=== PATIENT | male | born 1985 | race Two or more races ===

== ENCOUNTER 2018-03-09 12:47 | Emergency (ER) | payer BC ==
[2018-03-09] MEDS ORDERED: METOCLOPRAMIDE HCL INJ/PF 10 MG/2 ML SDV IV ONE (13:01)
[2018-03-09] MEDS ORDERED: DIPHENHYDRAMINE HCL 50 MG/ML VIAL IV ONE (13:01)
[2018-03-09] MEDS ORDERED: NORMAL SALINE 1000 ML 500 ML IV ONE (13:02)
--- NOTE | 2018-03-09 13:06 | ER Document Report ---
ED General - General Chief Complaint: Vomiting Stated Complaint: VOMITING/SLEEP ISSUES Time Seen by Provider: 03/09/18 12:56 Notes: 32-year-old male here with complaints of nausea vomiting diarrhea over the past 2 days. He has had some intermittent abdominal cramping but not at this time. The diarrhea has resolved. He has not had a bowel movement in 2 days but he has also not been eating anything due to the nausea. He saw his doctor and was prescribed Zofran which is helping and the vomiting has resolved but nausea persists. He also has some body aches for which he has taken Tylenol. He is also had some trouble sleeping due to the symptoms but has not taken anything for this. He denies any known sick contacts. TRAVEL OUTSIDE OF THE [place] IN LAST 30 DAYS: No - Related Data Allergies/Adverse Reactions: No Known Allergies Allergy (Verified 03/09/18 12:50) Past Medical History - Social History Smoking Status: Never Smoker Chew tobacco use (# tins/day): No Frequency of alcohol use: None Drug Abuse: None Family History: Reviewed & Not Pertinent Patient has suicidal ideation: No Patient has homicidal ideation: No Endocrine Medical History: Reports: Hx Diabetes Mellitus Type 2 - Diet controlled Renal/ Medical History: Denies: Hx Peritoneal Dialysis Review of Systems - Review of Systems Notes: See history of present illness for pertinent positive review of systems; otherwise all review of systems have been reviewed and are negative Physical Exam - Vital signs Vitals: Temp Pulse Resp BP Pulse Ox 98.2 F 99 20 138/96 H 98 03/09/18 12:52 03/09/18 12:52 03/09/18 12:52 03/09/18 12:52 03/09/18 12:52 - Notes Notes: PHYSICAL EXAMINATION: GENERAL: Well-appearing and in no acute distress. HEAD: Atraumatic, normocephalic. EYES: Pupils equal round and reactive to light, extraocular movements intact, sclera anicteric, conjunctiva are normal. ENT: nares patent, oropharynx clear without exudates. Moist mucous membranes. NECK: Normal range of motion, supple without lymphadenopathy LUNGS: CTAB and equal. No wheezes rales or rhonchi. HEART: Regular rate and rhythm without murmurs ABDOMEN: Soft, no tenderness. No facial grimacing/wincing upon palpation. No guarding, no rebound. EXTREMITIES: Normal range of motion, no pitting edema. No cyanosis. NEUROLOGICAL: Cranial nerves grossly intact. Normal sensory/motor exams. PSYCH: Normal mood, normal affect. SKIN: Warm, Dry, normal turgor, no rashes or lesions noted Course - Re-evaluation Re-evalutation: 03/09/18 13:04 MEDICAL DECISION MAKING: Concern for gastrointestinal infection, most likely viral Value fluids here and Reglan and Benadryl with prescription oral Reglan and Phenergan suppositories Instructed patient on fever control with Tylenol and/or (if applicable) Motrin Also discussed keeping hydrated with water or Gatorade/Pedialyte Instructed follow-up PCP next day or few Patient understands and agrees to the plan of care - Vital Signs Vital signs: Temp Pulse Resp BP Pulse Ox 98.2 F 99 20 138/96 H 98 03/09/18 12:52 03/09/18 12:52 03/09/18 12:52 03/09/18 12:52 03/09/18 12:52 Discharge - Discharge Clinical Impression: Nausea vomiting and diarrhea Condition: Good Disposition: HOME, SELF-CARE Instructions: Antinausea Medication ([facility]) Additional Instructions: You were seen in the emergency department at [facility]. Use the Reglan pills for vomiting. If he cannot tolerate pills, use the Phenergan suppositories. They will also help with sleep. If you were given any sedating medications, such as Reglan and Phenergan, be sure not to operate heavy machinery (example - driving) and be sure you are not too sedated to walk appropriately. Please followup with your primary physician in the next few days for further management/evaluation. Please return to the emergency department for worsening of symptoms or any symptom that you deem to be concerning or life-threatening. Thank you for allowing us to be part of your care. This documentation serves as your work/school note for your ED visit today. Prescriptions: Metoclopramide HCl [Reglan 10 mg Tablet] 1 tab PO BIDP PRN #10 tablet PRN Reason: Promethazine HCl [Phenergan 25 mg Supp.rect] 1 supp CO Q6H #12 supp.rect
[2018-03-09 14:41] VITALS: BP 122/88
== END 2018-03-09 14:38 | disposition home or self-care (01) ==
LOC: ER 12:47
DX: R11.2 Nausea with vomiting, unspecified (principal); R19.7 Diarrhea, unspecified; R10.9 Unspecified abdominal pain; E11.9 Type 2 diabetes mellitus without complications
CPT/HCPCS: 99283; 96361; 96374; 96375; J1200; J2765; J7030

== ENCOUNTER 2018-03-10 16:40 | Emergency (ER) | payer BC ==
[2018-03-10 17:12] LABS: ABSOLUTE BASOPHILS # (AUTO) 0.1 10^3/uL (0.0-0.2); ABSOLUTE LYMPHOCYTES (AUTO) 3.8 10^3/uL (0.5-4.7); ABSOLUTE MONOCYTES (AUTO) 1.5 10^3/uL (0.1-1.4); ABSOLUTE NEUT (AUTO) 12.9 10^3/uL (1.7-8.2); BASOPHILS % (AUTO) 0.4 % (0-2); EOSINOPHILS % (AUTO) 0.2 % (0-6); HEMATOCRIT 49.4 % (37.9-51.0); HEMOGLOBIN 16.8 g/dL (13.5-17.0); LYMPHOCYTES % (AUTO) 20.8 % (13-45); MEAN CORPUSCULAR HEMOGLOBIN 28.4 pg (27.0-33.4); MEAN CORPUSCULAR HGB CONC 34.1 g/dL (32.0-36.0); MEAN CORPUSCULAR VOLUME 83 fl (80-97); MONOCYTES % (AUTO) 8.1 % (3-13); PLATELET COUNT 321 10^3/uL (150-450); RED BLOOD COUNT 5.94 10^6/uL (4.35-5.55); RED CELL DISTRIBUTION WIDTH 12.8 % (11.5-14.0); SEGMENTED NEUTROPHILS % (AUTO) 70.5 % (42-78); TOTAL CELLS COUNTED % (AUTO) 100 %; WHITE BLOOD COUNT 18.3 10^3/uL (4.0-10.5)
[2018-03-10 17:53] LABS: ALANINE AMINOTRANSFERASE 25 U/L (21-72); ALBUMIN 5.2 g/dL (3.5-5.0); ALKALINE PHOSPHATASE 87 U/L (38-126); ASPARTATE AMINO TRANSFERASE 18 U/L (17-59); BILIRUBIN,DIRECT 0.5 mg/dL (0.0-0.4); BILIRUBIN,TOTAL 1.2 mg/dL (0.2-1.3); BLOOD UREA NITROGEN 15 mg/dL (7-20); GLUCOSE 284 mg/dL (75-110); POTASSIUM 4.5 mmol/L (3.6-5.0); TOTAL PROTEIN 8.6 g/dL (6.3-8.2)
[2018-03-10 17:58] LABS: CARBON DIOXIDE 18 mmol/L (22-30); CHLORIDE 99 mmol/L (98-107); SODIUM 138.6 mmol/L (137-145)
[2018-03-10 18:01] LABS: ANION GAP 22 (5-19)
[2018-03-10 18:09] LABS: APPEARANCE,URINE CLEAR; BILIRUBIN,URINE NEGATIVE (NEGATIVE); COLOR,URINE YELLOW; GLUCOSE, URINE >=500 mg/dL (NEGATIVE); KETONES,URINE 80 mg/dL (NEGATIVE); LEUKOCYTE ESTERASE,URINE NEGATIVE (NEGATIVE); NITRITE,URINE NEGATIVE (NEGATIVE); PROTEIN,URINE 100 mg/dL (NEGATIVE); URINE SPECIFIC GRAVITY 1.038; UROBILINOGEN,URINE NEGATIVE mg/dL (<2.0)
[2018-03-10] MEDS ORDERED: NORMAL SALINE 1000 ML 1,000 ML IV ONE (18:25)
[2018-03-10] MEDS ORDERED: RINGERS SOLUTION,LACTATED 1,000 ML IV ONE (19:13)
[2018-03-10] MEDS ORDERED: METOCLOPRAMIDE HCL ORAL SOLN 10 MG/10 ML UDCUP PO ONE (19:13)
[2018-03-10] MEDS ORDERED: LIDOCAINE 2% VISCOUS SOLN 20 ML UDCUP PO ONE (19:13)
[2018-03-10] MEDS ORDERED: FAMOTIDINE 20 MG TABLET PO ONE (19:13)
[2018-03-10] MEDS ORDERED: MAG HYDROX/AL HYDROX/SIMETH SUSP 30 ML UDCUP PO ONE (19:13)
--- NOTE | 2018-03-10 19:18 | ER Document Report ---
ED General - General Chief Complaint: General Weakness Stated Complaint: WEAKNESS Time Seen by Provider: 03/10/18 18:24 Notes: Patient is a 32-year-old male with a past medical history of diabetes controlled with diet who presents with body aches, fatigue, nausea, and feeling generally unwell. Patient reports that he had a vomiting and diarrheal illness 2 days ago which has now resolved but notes that his symptoms of generally feeling unwell have not improved. He describes the pain in his body as being an aching, throbbing, constant pain. He states that he was seen in the emergency department yesterday, but that the medications provided are not necessary as he no longer has any nausea or vomiting. His main complaint is that he is unable to sleep. There is no specific reason cannot do so he states only that he lies in his bed and is unable to rest. He denies anything in particular is keeping him awake. He denies a history of insomnia at baseline. He denies any focal abdominal pain, fever, or inability to tolerate oral intake at this time stating that he has been trying to push fluids aggressively but does not feel that this is resolving his symptoms. He notes that he has a recurrent history of similar symptoms in the past but that they do not typically last this long. He has not seen his general doctor regarding today's concerns. TRAVEL OUTSIDE OF THE [place] IN LAST 30 DAYS: No - Related Data Allergies/Adverse Reactions: No Known Allergies Allergy (Verified 03/10/18 16:41) Past Medical History - General Information source: Patient - Social History Smoking Status: Never Smoker Frequency of alcohol use: None Drug Abuse: None Lives with: Spouse/Significant other Family History: Reviewed & Not Pertinent Patient has suicidal ideation: No Patient has homicidal ideation: No Endocrine Medical History: Reports: Hx Diabetes Mellitus Type 2 - Diet controlled Renal/ Medical History: Denies: Hx Peritoneal Dialysis Past Surgical History: Reports: Hx Tonsillectomy Review of Systems - Review of Systems Notes: Constitutional: Negative for fever. HENT: Negative for sore throat. Eyes: Negative for visual changes. Cardiovascular: Negative for chest pain. Respiratory: Negative for shortness of breath. Gastrointestinal: Negative for abdominal pain, positive for nausea Genitourinary: Negative for dysuria. Musculoskeletal: Positive for body aches Skin: Negative for rash. Neurological: Negative for headaches, weakness or numbness. 10 point ROS negative except as marked above and in HPI. Physical Exam - Vital signs Vitals: Temp Pulse Resp BP Pulse Ox 99.2 F 113 H 18 131/93 H 97 03/10/18 16:44 03/10/18 16:44 03/10/18 16:44 03/10/18 16:44 03/10/18 16:44 Interpretation: Tachycardic Notes: PHYSICAL EXAMINATION: GENERAL: Appears mildly uncomfortable but in no acute distress HEAD: Atraumatic, normocephalic. EYES: Pupils equal round and reactive to light, extraocular movements intact, sclera anicteric, conjunctiva are normal. ENT: nares patent, oropharynx clear without exudates. Mildly dry mucous membranes. NECK: Normal range of motion, supple without lymphadenopathy LUNGS: Breath sounds clear to auscultation bilaterally and equal. No wheezes rales or rhonchi. HEART: Regular rate and rhythm without murmurs ABDOMEN: Soft, nontender, normoactive bowel sounds. No guarding, no rebound. No masses appreciated. EXTREMITIES: Normal range of motion, no pitting or edema. No cyanosis. NEUROLOGICAL: No focal neurological deficits. Moves all extremities spontaneously and on command. PSYCH: Normal mood, normal affect. SKIN: Warm, Dry, normal turgor, no rashes or lesions noted. Course - Re-evaluation Re-evalutation: 03/10/18 19:15 Presentation of an overall well-appearing patient in no acute distress with complaints of nausea, vomiting, diarrhea all of which has since resolved with the patient reports that he continues to feel dehydrated with associated body aches. This is consistent with likely viral gastroenteritis. Patient has no abdominal tenderness on exam and specifically no tenderness in the RLQ, LLQ, RUQ. Overall well hydrated on exam although labs are notable for a mildly decreased bicarb. Able to tolerate oral intake here in the emergency department. Low clinical suspicion for any acute life-threatening etiology based on exam and history including acute cholecystitis, SBO, appendicitis, nephrolithiasis, or pylonephritis. CMP without evidence of acute hepatitis. CBC does show nonspecific leukocytosis. CK without evidence of rhabdomyolysis. Venous blood gas evidence of acute acidosis or significant alkalosis. Patient is likely having persistence of symptoms as he has only slept 3-4 hours in the past 2 days per his report. I will prescribe a short course of trazodone that he can use to allow him to sleep so he can recover. At this time will discharge with return precautions and follow-up recommendations. Verbal discharge instructions given a the bedside and opportunity for questions given. Medication warnings reviewed. Patient is in agreement with this plan and has verbalized understanding of return precautions and the need for primary care follow-up in the next 24-72 hours. - Vital Signs Vital signs: Temp Pulse Resp BP Pulse Ox 99.6 F 113 H 16 134/80 H 96 03/10/18 21:25 03/10/18 16:44 03/10/18 21:00 03/10/18 21:01 03/10/18 21:01 - Laboratory Result Diagrams: 03/10/18 17:00 03/10/18 17:00 Laboratory results interpreted by me: 03/10/18 03/10/18 03/10/18 17:00 17:00 17:40 WBC 18.3 H RBC 5.94 H Absolute Neutrophils 12.9 H Absolute Monocytes 1.5 H Carbon Dioxide 18 L Anion Gap 22 H Glucose 284 H Direct Bilirubin 0.5 H Total Protein 8.6 H Albumin 5.2 H Urine Protein 100 H Urine Glucose (UA) >=500 H Urine Ketones 80 H Urine Blood SMALL H Discharge - Discharge Clinical Impression: Nausea vomiting and diarrhea, Dehydration, Body aches Insomnia Qualifiers: Insomnia type: unspecified Qualified Code(s): G47.00 - Insomnia, unspecified Leukocytosis Qualifiers: Leukocytosis type: unspecified Qualified Code(s): D72.829 - Elevated white blood cell count, unspecified Condition: Good Disposition: HOME, SELF-CARE Additional Instructions: Your symptoms are likely due to a viral illness and should resolve in the next several days. Continue to stay hydrated with plenty of solution such as Gatorade or Pedialyte. Please return if you develop severe abdominal pain, pass out, become unable to tolerate any oral fluids for 12 more hours, or any other symptoms that are concerning to you. Take the trazodone at night as needed for insomnia. Prescriptions: Trazodone HCl 100 mg PO QHS #10 tablet
[2018-03-10 19:30] LABS: VENOUS BLOOD BASE EXCESS -5.7 mmol/L; VENOUS BLOOD HCO3 20.1 mmol/L (20-32); VENOUS BLOOD PCO2 40.6 mmHg (35-63); VENOUS BLOOD PH 7.31 (7.30-7.42)
[2018-03-10 20:34] LABS: CREATINE KINASE 121 U/L (55-170)
[2018-03-10 21:33] VITALS: BP 134/80
== END 2018-03-10 21:30 | disposition home or self-care (01) ==
LOC: ER 16:40
DX: R11.2 Nausea with vomiting, unspecified (principal); R19.7 Diarrhea, unspecified; E86.0 Dehydration; M79.1 Myalgia; G47.00 Insomnia, unspecified; D72.829 Elevated white blood cell count, unspecified; R53.1 Weakness; E11.9 Type 2 diabetes mellitus without complications
CPT/HCPCS: 99285; 96360; 96361; 36415; 82962; 82550; 83605; 83690; 85025; 80053; 81001; 82803; J3490; J7030; J7120

== ENCOUNTER 2018-10-17 16:29 | Emergency (ER) | payer SELFPAY ==
[2018-10-17 16:42] VITALS: BP 146/94
[2018-10-17] MEDS ORDERED: NORMAL SALINE 1000 ML 1,000 ML IV ONE (17:47)
[2018-10-17] MEDS ORDERED: PROCHLORPERAZINE EDISYLATE INJ 10 MG/2 ML VIAL IV ONE (17:47)
[2018-10-17] MEDS ORDERED: FAMOTIDINE INJ/PF 20 MG/2 ML SDV IV ONE (17:47)
[2018-10-17] MEDS ORDERED: ONDANSETRON 4 MG TAB.RAPDIS PO ONE (17:48)
--- NOTE | 2018-10-17 17:52 | ER Document Report ---
ED Medical Screen (RME) - General Chief Complaint: Nausea/Vomiting Stated Complaint: VOMITING Time Seen by Provider: 10/17/18 17:45 Notes: 32-year-old male to the emergency department chief complaint of "cyclic vomiting". 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 Cannot stop vomiting. Was prescribed some medications but has not been able to take them yet. Denies any abdominal pain I have greeted and performed a rapid initial assessment of this patient. A comprehensive ED assessment and evaluation of the patient, analysis of test results and completion of the medical decision making process will be conducted by additional ED providers. TRAVEL OUTSIDE OF THE [place] IN LAST 30 DAYS: No - Related Data Allergies/Adverse Reactions: No Known Allergies Allergy (Verified 05/22/18 09:36) Past Medical History Endocrine Medical History: Reports: Hx Diabetes Mellitus Type 2 - Diet controlle d Renal/ Medical History: Denies: Hx Peritoneal Dialysis Past Surgical History: Reports: Hx Tonsillectomy Physical Exam - Vital signs Vitals: Temp Pulse Resp BP Pulse Ox 97.6 F 70 18 146/94 H 100 10/17/18 16:39 10/17/18 16:39 10/17/18 16:39 10/17/18 16:39 10/17/18 16:39 - Notes Notes: Uncontrollable vomiting in triage. Course - Vital Signs Vital signs: Temp Pulse Resp BP Pulse Ox 97.6 F 70 18 146/94 H 100 10/17/18 16:39 10/17/18 16:39 10/17/18 16:39 10/17/18 16:39 10/17/18 16:39
[2018-10-17 18:29] LABS: VENOUS BLOOD BASE EXCESS -5.6 mmol/L; VENOUS BLOOD HCO3 20.6 mmol/L (20-32); VENOUS BLOOD PCO2 42.4 mmHg (35-63); VENOUS BLOOD PH 7.3 (7.30-7.42)
[2018-10-17 18:34] LABS: HEMATOCRIT 49.4 % (37.9-51.0); HEMOGLOBIN 16.7 g/dL (13.5-17.0); MEAN CORPUSCULAR HEMOGLOBIN 28.3 pg (27.0-33.4); MEAN CORPUSCULAR HGB CONC 33.8 g/dL (32.0-36.0); MEAN CORPUSCULAR VOLUME 84 fl (80-97); RED BLOOD COUNT 5.89 10^6/uL (4.35-5.55); RED CELL DISTRIBUTION WIDTH 13.2 % (11.5-14.0); WHITE BLOOD COUNT 24.3 10^3/uL (4.0-10.5)
[2018-10-17 18:50] LABS: ABSOLUTE LYMPHOCYTES# (MANUAL) 1.9 10^3/uL (0.5-4.7); ABSOLUTE NEUTROPHILS# (MANUAL) 21.4 10^3/uL (1.7-8.2); BASOPHILS % (MANUAL) 0 % (0-2); EOSINOPHILS % (MANUAL) 0 % (0-6); LYMPHOCYTES % (MANUAL) 8 % (13-45); MONOCYTES % (MANUAL) 4 % (3-13); SEGMENTED NEUTROPHILS % (MAN) 88 % (42-78); TOTAL CELLS COUNTED 100
[2018-10-17 18:52] LABS: PLATELET CLUMPS PRESENT; PLATELET COMMENT ADEQUATE; PLATELET COUNT 309 10^3/uL (150-450); POLYCHROMASIA SLIGHT
[2018-10-17 18:58] LABS: ALANINE AMINOTRANSFERASE 19 U/L (21-72); ALBUMIN 5.6 g/dL (3.5-5.0); ALKALINE PHOSPHATASE 91 U/L (38-126); ASPARTATE AMINO TRANSFERASE 18 U/L (17-59); BILIRUBIN,DIRECT 0.3 mg/dL (0.0-0.4); BILIRUBIN,TOTAL 0.6 mg/dL (0.2-1.3); BLOOD UREA NITROGEN 17 mg/dL (7-20); CALCIUM 10.4 mg/dL (8.4-10.2); LIPASE 41.1 U/L (23-300); POTASSIUM 4.3 mmol/L (3.6-5.0); TOTAL PROTEIN 8.8 g/dL (6.3-8.2)
[2018-10-17 19:04] LABS: GLUCOSE 398 mg/dL (75-110)
[2018-10-17 19:06] LABS: CHLORIDE 99 mmol/L (98-107)
[2018-10-17 19:07] LABS: CARBON DIOXIDE 20 mmol/L (22-30); SODIUM 142.5 mmol/L (137-145)
[2018-10-17 19:08] LABS: ANION GAP 24 (5-19)
[2018-10-17 19:47] LABS: APPEARANCE,URINE CLEAR; BILIRUBIN,URINE NEGATIVE (NEGATIVE); COLOR,URINE YELLOW; GLUCOSE, URINE >=500 mg/dL (NEGATIVE); KETONES,URINE 80 mg/dL (NEGATIVE); LEUKOCYTE ESTERASE,URINE NEGATIVE (NEGATIVE); NITRITE,URINE NEGATIVE (NEGATIVE); PROTEIN,URINE 100 mg/dL (NEGATIVE); URINE SPECIFIC GRAVITY 1.036; UROBILINOGEN,URINE NEGATIVE mg/dL (<2.0)
[2018-10-17 20:00] LABS: URINE AMPHETAMINES SCREEN NEGATIVE; URINE BARBITURATES SCREEN NEGATIVE; URINE BENZODIAZEPINES SCREEN NEGATIVE; URINE COCAINE SCREEN NEGATIVE; URINE MARIJUANA (THC) SCREEN UNCONFIRMED POSITIVE; URINE METHADONE SCREEN NEGATIVE; URINE PHENCYCLIDINE SCREEN NEGATIVE
--- NOTE | 2018-10-17 21:22 | EKG REPORT ---
SEVERITY:- BORDERLINE ECG - SINUS ARRHYTHMIA, RATE 53-71 BORDERLINE T ABNORMALITIES, INFERIOR LEADS : Confirmed by: Chris Estrada 17-Oct-2018 21:21:56
== END 2018-10-17 19:59 | disposition left against medical advice (07) ==
LOC: ER 16:29
DX: G43.A0 Cyclical vomiting, in migraine, not intractable (principal); E11.9 Type 2 diabetes mellitus without complications; Z53.20 Procedure and treatment not carried out because of patient's decision for unspecified reasons
CPT/HCPCS: 93005; 99281; 36415; 83690; 85025; 80053; 81001; 84484; 80307; 82803; 93010; S0119; J0780; J7030; S0028

== ENCOUNTER 2019-02-08 21:48 | Inpatient (IN) | payer BC ==
[2019-02-08] MEDS ORDERED: RINGERS SOLUTION,LACTATED 1,000 ML IV ONE ×2 (23:39→23:43)
[2019-02-08] MEDS ORDERED: ONDANSETRON HCL INJ/PF 4 MG/2 ML SDV IV ONE (23:39)
--- NOTE | 2019-02-08 23:41 | ER Document Report ---
ED Medical Screen (RME) - General Chief Complaint: vomitng Stated Complaint: VOMITING Time Seen by Provider: 02/08/19 23:39 Notes: Patient is a 33-year-old male history of cyclic vomiting syndrome presents to the emergency department for vomiting that started on Tuesday. States he is vomited upwards of 50 times. Patient states the last 48 hours he has not noticed any vomiting but has noticed that he has become increasingly weak. States his breathing has become elevated and he feels as though he is dehydrated. Patient states he does have a history of diabetes but has had no medications for same. Physical exam: Patient hyperventilating upon my examination. Abdomen soft nontender all 4 quadrants. No active vomiting noted. Due to patient's history of diabetes, potential hyperventilation versus Kussmaul breathing Accu-Chek ordered. I have greeted and performed a rapid initial assessment of this patient. A comprehensive ED assessment and evaluation of the patient, analysis of test results and completion of the medical decision making process will be conducted by additional ED providers. TRAVEL OUTSIDE OF THE [place] IN LAST 30 DAYS: No - Related Data Allergies/Adverse Reactions: No Known Allergies Allergy (Verified 05/22/18 09:36) Past Medical History Endocrine Medical History: Reports: Hx Diabetes Mellitus Type 2 - Diet controlled Renal/ Medical History: Denies: Hx Peritoneal Dialysis Past Surgical History: Reports: Hx Tonsillectomy Physical Exam - Vital signs Vitals: Temp Pulse Resp BP Pulse Ox 97.3 F 129 H 26 H 128/76 H 100 02/08/19 22:55 02/08/19 22:55 02/08/19 22:55 02/08/19 22:55 02/08/19 22:55 Course - Vital Signs Vital signs: Temp Pulse Resp BP Pulse Ox 97.3 F 129 H 26 H 128/76 H 100 02/08/19 22:55 02/08/19 22:55 02/08/19 22:55 02/08/19 22:55 02/08/19 22:55
--- NOTE | 2019-02-09 00:36 | ER Document Report ---
ED GI/ - General Chief Complaint: Vomiting Stated Complaint: VOMITING Time Seen by Provider: 02/08/19 23:39 Notes: 33-year-old male the emergency department with uncontrolled vomiting. Patient has a history of cyclical vomiting. History of diabetes but does not take anything for it. States that he has not been able to eat for several days. Denies any chest pain. Does have pain all over though. TRAVEL OUTSIDE OF THE [place] IN LAST 30 DAYS: No - HPI Patient complains to provider of: Abdominal pain Timing/Duration: Gradual, Constant, Worse Quality of pain: Achy Severity at maximum: Severe Severity in ED: Moderate Pain Level: 2 Location: Epigastric - Related Data Allergies/Adverse Reactions: No Known Allergies Allergy (Verified 05/22/18 09:36) Past Medical History - General Information source: Patient - Social History Smoking Status: Never Smoker Chew tobacco use (# tins/day): No Frequency of alcohol use: None Drug Abuse: None Lives with: Spouse/Significant other Family History: Reviewed & Not Pertinent Patient has suicidal ideation: No Patient has homicidal ideation: No - Medical History Medical History: Other - Diabetes, cyclical vomiting Endocrine Medical History: Reports: Hx Diabetes Mellitus Type 2 - Diet controll ed Renal/ Medical History: Denies: Hx Peritoneal Dialysis Past Surgical History: Reports: Hx Tonsillectomy Review of Systems - Review of Systems Notes: Constitutional: denies: Chills, Diaphoresis, Fever, +Malaise, +Weakness EENT: denies: Eye discharge, Blurred vision, Tearing, Double vision, Nose congestion, Nose discharge, Throat swelling, Mouth pain Cardiovascular: denies: Orthopnea, Dyspnea, Chest pain. Positive forPalpitations, Heart racing, Respiratory: denies: Cough, Hurts to breathe, Wheezing, +Shortness of breath Gastrointestinal: Complaining of nausea and vomiting with some mild abdominal pain. Genitourinary: denies: Burning, Dysuria, Discharge, Frequency, Flank pain, Hematuria Musculoskeletal: denies: Joint pain, Joint swelling, Muscle pain, Muscle st iffness, back pain Hematologic/Lymphatic: denies: Anemia, Easy bleeding, Easy bruising, Blood clot s Neurological/Psychological: denies: Confusion, Dementia, Depression, Loss of consciousness Skin: No lesions, no masses, no skin breakdown, no abscesses Physical Exam - Vital signs Vitals: Temp Pulse Resp BP Pulse Ox 97.3 F 129 H 26 H 128/76 H 100 02/08/19 22:55 02/08/19 22:55 02/08/19 22:55 02/08/19 22:55 02/08/19 22:55 Interpretation: Tachycardic - Notes Notes: Very ill-appearing. Strong smell of ketones on breath. - General General appearance: Alert In distress: Severe - HEENT Head: Normocephalic, Atraumatic Eyes: Normal Pupils: PERRL Mucous membranes: Dry - Respiratory Respiratory status: No respiratory distress Chest status: Nontender Breath sounds: Normal Chest palpation: Normal - Cardiovascular Rhythm: Tachycardia Heart sounds: Normal auscultation Murmur: No - Abdominal Inspection: Normal Distension: No distension Bowel sounds: Normal Tenderness: Nontender Organomegaly: No organomegaly - Back Back: Normal, Nontender - Extremities General upper extremity: Normal inspection, Nontender, Normal color, Normal ROM, Normal temperature General lower extremity: Normal inspection, Nontender, Normal color, Normal ROM, Normal temperature, Normal weight bearing. No: Stephanie's sign - Neurological Neuro grossly intact: Yes Cognition: Normal Orientation: AAOx4 Coleamn Coma Scale Eye Opening: Spontaneous Coleman Coma Scale Verbal: Oriented Bruce Coma Scale Motor: Obeys Commands Bruce Coma Scale Total: 15 Speech: Normal Motor strength normal: LUE, RUE, LLE, RLE Sensory: Normal - Psychological Associated symptoms: Normal affect, Normal mood - Skin Skin Temperature: Warm Skin Moisture: Dry Skin Color: Normal Course - Re-evaluation Re-evalutation: 02/09/19 01:53 With DKA. Sugar over 700. Large gap. Started on insulin drip and fluids. Patient had a run of SVT. Converted after third liter of fluid. Patient will be admitted to the ICU at this time. 02/09/19 01:54 Laboratory 02/09/19 02/09/19 02/09/19 00:18 00:18 00:18 WBC 27.5 H RBC 6.03 H Hgb 16.8 Hct 53.2 H MCV 88 MCH 27.9 MCHC 31.6 L RDW 13.4 Plt Count 355 Total Counted 100 Seg Neutrophils % Not Reportable Seg Neuts % (Manual) 81 H Band Neutrophils % 4 Lymphocytes % Not Reportable Lymphocytes % (Manual) 5 L Monocytes % Not Reportable Monocytes % (Manual) 10 Eosinophils % Not Reportable Eosinophils % (Manual) 0 Basophils % Not Reportable Basophils % (Manual) 0 Absolute Neutrophils Not Reportable Abs Neuts (Manual) 23.4 H Absolute Lymphocytes Not Reportable Abs Lymphs (Manual) 1.4 Absolute Monocytes Not Reportable Abs Monocytes (Manual) 2.8 H Absolute Eosinophils Not Reportable Absolute Eos (Manual) 0.0 Absolute Basophils Not Reportable Abs Basophils (Manual) 0.0 Platelet Comment ADEQUATE RBC Morph Comment NORMO-CYTIC/CHROMIC VBG pH 6.99 L* VBG pCO2 20.5 L VBG HCO3 4.9 L VBG Base Excess -25.1 Sodium 132.5 L Potassium 6.9 H* Chloride 93 L Carbon Dioxide < 5 L* Anion Gap Not Reportable BUN 35 H Creatinine 2.00 H Est GFR ( Amer) 47 L Est GFR (Non-Af Amer) 39 L Glucose 719 H* POC Glucose Calcium 10.1 Total Bilirubin 0.8 Direct Bilirubin 0.5 H Neonat Total Bilirubin Not Reportable Neonat Direct Bilirubin Not Reportable Neonat Indirect Bili Not Reportable AST 19 ALT 26 Alkaline Phosphatase 118 Total Protein 8.5 H Albumin 5.2 H Lipase 139.1 02/09/19 01:33 WBC RBC Hgb Hct MCV MCH MCHC RDW Plt Count Total Counted Seg Neutrophils % Seg Neuts % (Manual) Band Neutrophils % Lymphocytes % Lymphocytes % (Manual) Monocytes % Monocytes % (Manual) Eosinophils % Eosinophils % (Manual) Basophils % Basophils % (Manual) Absolute Neutrophils Abs Neuts (Manual) Absolute Lymphocytes Abs Lymphs (Manual) Absolute Monocytes Abs Monocytes (Manual) Absolute Eosinophils Absolute Eos (Manual) Absolute Basophils Abs Basophils (Manual) Platelet Comment RBC Morph Comment VBG pH VBG pCO2 VBG HCO3 VBG Base Excess Sodium Potassium Chloride Carbon Dioxide Anion Gap BUN Creatinine Est GFR ( Amer) Est GFR (Non-Af Amer) Glucose POC Glucose > 550 H* Calcium Total Bilirubin Direct Bilirubin Neonat Total Bilirubin Neonat Direct Bilirubin Neonat Indirect Bili AST ALT Alkaline Phosphatase Total Protein Albumin Lipase - Vital Signs Vital signs: Temp Pulse Resp BP Pulse Ox 97.3 F 180 H 32 H 153/87 H 100 02/08/19 22:55 02/09/19 01:30 02/09/19 01:30 02/09/19 01:02 02/09/19 01:05 - Laboratory Result Diagrams: 02/09/19 00:18 02/09/19 00:18 Laboratory results interpreted by me: 02/09/19 02/09/19 02/09/19 00:18 00:18 00:18 WBC 27.5 H RBC 6.03 H Hct 53.2 H MCHC 31.6 L Seg Neuts % (Manual) 81 H Lymphocytes % (Manual) 5 L Abs Neuts (Manual) 23.4 H Abs Monocytes (Manual) 2.8 H VBG pH 6.99 L* VBG pCO2 20.5 L VBG HCO3 4.9 L Sodium 132.5 L Potassium 6.9 H* Chloride 93 L Carbon Dioxide < 5 L* BUN 35 H Creatinine 2.00 H Est GFR ( Amer) 47 L Est GFR (Non-Af Amer) 39 L Glucose 719 H* POC Glucose Direct Bilirubin 0.5 H Total Protein 8.5 H Albumin 5.2 H 02/09/19 01:33 WBC RBC Hct MCHC Seg Neuts % (Manual) Lymphocytes % (Manual) Abs Neuts (Manual) Abs Monocytes (Manual) VBG pH VBG pCO2 VBG HCO3 Sodium Potassium Chloride Carbon Dioxide BUN Creatinine Est GFR ( Amer) Est GFR (Non-Af Amer) Glucose POC Glucose > 550 H* Direct Bilirubin Total Protein Albumin - EKG Interpretation by Me EKG shows normal: [place], Intervals, QRS Complexes, ST-T Waves Rate: Tachycardia Critical Care Note - Critical Care Note Total time excluding time spent on procedures (mins): 45 Comments: DKA, acidosis mild tachycardia Discharge - Discharge Clinical Impression: DKA (diabetic ketoacidoses) Qualifiers: Diabetes mellitus type: other specified (including EMELY) Diabetes mellitus complication detail: without coma Qualified Code(s): E13.10 - Other specified diabetes mellitus with ketoacidosis without coma Condition: Serious Disposition: ADMITTED INPATIENT Admitting Provider: Izabella (Hospitalist) Unit Admitted: ICU
[2019-02-09 00:38] LABS: VENOUS BLOOD BASE EXCESS -25.1 mmol/L; VENOUS BLOOD HCO3 4.9 mmol/L (20-32); VENOUS BLOOD PCO2 20.5 mmHg (35-63)
[2019-02-09 00:42] LABS: HEMATOCRIT 53.2 % (37.9-51.0); HEMOGLOBIN 16.8 g/dL (13.5-17.0); MEAN CORPUSCULAR HEMOGLOBIN 27.9 pg (27.0-33.4); MEAN CORPUSCULAR HGB CONC 31.6 g/dL (32.0-36.0); MEAN CORPUSCULAR VOLUME 88 fl (80-97); PLATELET COUNT 355 10^3/uL (150-450); RED BLOOD COUNT 6.03 10^6/uL (4.35-5.55); RED CELL DISTRIBUTION WIDTH 13.4 % (11.5-14.0); VENOUS BLOOD PH 6.99 (7.30-7.42); WHITE BLOOD COUNT 27.5 10^3/uL (4.0-10.5)
[2019-02-09 00:59] LABS: ALANINE AMINOTRANSFERASE 26 U/L (21-72); ALBUMIN 5.2 g/dL (3.5-5.0); ALKALINE PHOSPHATASE 118 U/L (38-126); ASPARTATE AMINO TRANSFERASE 19 U/L (17-59); BILIRUBIN,DIRECT 0.5 mg/dL (0.0-0.4); BILIRUBIN,TOTAL 0.8 mg/dL (0.2-1.3); BLOOD UREA NITROGEN 35 mg/dL (7-20); CALCIUM 10.1 mg/dL (8.4-10.2); CHLORIDE 93 mmol/L (98-107); SODIUM 132.5 mmol/L (137-145); TOTAL PROTEIN 8.5 g/dL (6.3-8.2)
[2019-02-09 01:00] LABS: ABSOLUTE LYMPHOCYTES# (MANUAL) 1.4 10^3/uL (0.5-4.7); ABSOLUTE MONOCYTES # (MANUAL) 2.8 10^3/uL (0.1-1.4); ABSOLUTE NEUTROPHILS# (MANUAL) 23.4 10^3/uL (1.7-8.2); BAND NEUTROPHILS % (MANUAL) 4 % (3-5); BASOPHILS % (MANUAL) 0 % (0-2); EOSINOPHILS % (MANUAL) 0 % (0-6); LIPASE 139.1 U/L (23-300); LYMPHOCYTES % (MANUAL) 5 % (13-45); MONOCYTES % (MANUAL) 10 % (3-13); SEGMENTED NEUTROPHILS % (MAN) 81 % (42-78); TOTAL CELLS COUNTED 100
[2019-02-09 01:01] LABS: PLATELET COMMENT ADEQUATE; RBC MORPHOLOGY COMMENT NORMO-CYTIC/CHROMIC
[2019-02-09 01:09] LABS: GLUCOSE 719 mg/dL (75-110); POTASSIUM 6.9 mmol/L (3.6-5.0)
[2019-02-09 01:10] LABS: CARBON DIOXIDE < 5 mmol/L (22-30)
[2019-02-09] MEDS ORDERED: DEXTROSE 50%-WATER 25 GM/50 ML DISP.SYRIN IV PRN ×4 (01:17→10:30)
[2019-02-09] MEDS ORDERED: NORMAL SALINE 100 ML with INSULIN REGULAR, HUMAN 100 UNIT IV PRN ×4 (01:17→01:47)
[2019-02-09] MEDS ORDERED: INSULIN REG, HUMAN 100 UNIT/ML 3 ML VIAL (PYX) IV ONE (01:17)
[2019-02-09] MEDS ORDERED: DEXTROSE 40% GEL 15 GM TUBE PO PRN ×5 (01:17→14:00)
[2019-02-09] MEDS ORDERED: GLUCAGON,HUMAN RECOMB 1 MG INJ IM PRN ×2 (01:17→14:00)
[2019-02-09] MEDS ORDERED: INSULIN REG, HUMAN 100 UNIT/ML 3 ML VIAL (PYX) ONE (01:27)
[2019-02-09] MEDS ORDERED: NORMAL SALINE 1000 ML 1,000 ML IV ONE (01:30)
[2019-02-09] MEDS ORDERED: MAGNESIUM HYDROXIDE SUSP 30 ML UDCUP PO PRN (01:37)
[2019-02-09] MEDS ORDERED: RINGERS SOLUTION,LACTATED 1,000 ML IV PRN (01:37)
[2019-02-09] MEDS ORDERED: TEMAZEPAM 15 MG CAPSULE PO PRN (01:37)
[2019-02-09] MEDS ORDERED: NICOTINE 21 MG/24 HR PATCH.TD24 TD PRN (01:43)
[2019-02-09] MEDS ORDERED: ACETAMINOPHEN 325 MG TABLET PO PRN (01:43)
[2019-02-09] MEDS ORDERED: DEXTROSE 5%-WATER 1000 ML 1,000 ML with SODIUM BICARBONATE 150 MEQ IV PRN ×2 (01:49)
[2019-02-09] MEDS ORDERED: NALBUPHINE HCL INJ 10 MG/1 ML AMPULE IV PRN (02:23)
[2019-02-09] MEDS ORDERED: SODIUM BICARBONATE 8.4% INJ 50 MEQ/50 ML DISP.SYRIN ONE (02:54)
[2019-02-09] MEDS: MAG HYDROX/AL HYDROX/SIMETH SUSP 30 ML UDCUP PO PRN ×3 (04:00→17:16)
[2019-02-09 04:27] LABS: VENOUS BLOOD BASE EXCESS -19.9 mmol/L; VENOUS BLOOD HCO3 8.2 mmol/L (20-32); VENOUS BLOOD PCO2 26.9 mmHg (35-63)
[2019-02-09 04:29] LABS: VENOUS BLOOD PH 7.1 (7.30-7.42)
[2019-02-09 04:33] LABS: APPEARANCE,URINE CLEAR; BILIRUBIN,URINE NEGATIVE (NEGATIVE); COLOR,URINE STRAW; GLUCOSE, URINE >=500 mg/dL (NEGATIVE); KETONES,URINE 80 mg/dL (NEGATIVE); LEUKOCYTE ESTERASE,URINE NEGATIVE (NEGATIVE); NITRITE,URINE NEGATIVE (NEGATIVE); PROTEIN,URINE 30 mg/dL (NEGATIVE); URINE SPECIFIC GRAVITY 1.016; UROBILINOGEN,URINE NEGATIVE mg/dL (<2.0)
[2019-02-09 04:39] LABS: BLOOD UREA NITROGEN 31 mg/dL (7-20); GLUCOSE 378 mg/dL (75-110); SODIUM 139.8 mmol/L (137-145)
[2019-02-09 04:45] LABS: CHLORIDE 102 mmol/L (98-107)
[2019-02-09 04:54] LABS: ANION GAP 31 (5-19); POTASSIUM 5.5 mmol/L (3.6-5.0)
[2019-02-09 04:55] LABS: CARBON DIOXIDE 7 mmol/L (22-30)
[2019-02-09 06:08] LABS: URINE AMPHETAMINES SCREEN NEGATIVE; URINE BARBITURATES SCREEN NEGATIVE; URINE BENZODIAZEPINES SCREEN NEGATIVE; URINE COCAINE SCREEN NEGATIVE; URINE MARIJUANA (THC) SCREEN UNCONFIRMED POSITIVE; URINE METHADONE SCREEN NEGATIVE; URINE PHENCYCLIDINE SCREEN NEGATIVE
[2019-02-09] MEDS: HEPARIN SOD (PORCINE) 5,000 UNIT/ML 1 ML SYRINGE SUBCUT SCH ×3 (06:11→21:07)
[2019-02-09 08:40] LABS: HEMATOCRIT 46.9 % (37.9-51.0); HEMOGLOBIN 15.8 g/dL (13.5-17.0); MEAN CORPUSCULAR HEMOGLOBIN 27.5 pg (27.0-33.4); MEAN CORPUSCULAR HGB CONC 33.6 g/dL (32.0-36.0); PLATELET COUNT 273 10^3/uL (150-450); RED BLOOD COUNT 5.73 10^6/uL (4.35-5.55); RED CELL DISTRIBUTION WIDTH 12.7 % (11.5-14.0); WHITE BLOOD COUNT 21.9 10^3/uL (4.0-10.5)
[2019-02-09 08:43] LABS: MEAN CORPUSCULAR VOLUME 82 fl (80-97)
[2019-02-09 09:12] LABS: BLOOD UREA NITROGEN 26 mg/dL (7-20); CALCIUM 9.3 mg/dL (8.4-10.2); CARBON DIOXIDE 13 mmol/L (22-30); CHLORIDE 101 mmol/L (98-107); GLUCOSE 326 mg/dL (75-110)
[2019-02-09 09:18] LABS: SODIUM 139.2 mmol/L (137-145)
[2019-02-09] MEDS: DOCUSATE SODIUM 100 MG CAPSULE PO SCH ×2 (09:21→17:11)
[2019-02-09] MEDS: METOCLOPRAMIDE HCL INJ/PF 10 MG/2 ML SDV IV SCH ×4 (09:21→21:07)
[2019-02-09] MEDS: PANTOPRAZOLE SODIUM 40 MG VIAL IV SCH ×2 (09:22→21:07)
[2019-02-09 09:31] LABS: ANION GAP 25 (5-19); POTASSIUM 4.5 mmol/L (3.6-5.0)
[2019-02-09] MEDS ORDERED: 1/2 NORMAL SALINE 1,000 ML IV PRN (10:11)
[2019-02-09] MEDS: ONDANSETRON HCL INJ/PF 4 MG/2 ML SDV IV PRN ×2 (10:27→18:18)
[2019-02-09] MEDS ORDERED: GLUCAGON,HUMAN RECOMB 1 MG INJ SUBCUT PRN (10:30)
--- NOTE | 2019-02-09 10:37 | PDOC H&P ---
History of Present Illness Admission Date/PCP: 02/09/19 01:35 No PCP Patient complains of: Vomiting History of Present Illness: SAMMIE HERRERA is a 33 year old male who presented to the emergency room with a 3-day history of vomiting. Patient indicates that he began having frequent episodes of vomiting 3 days prior to his emergency room presentation and over the last 48 hours prior to coming to the emergency room his vomiting had become extremely severe having at least 50 emeses (small amounts of clear or foamy liquid and mucus) over that 2-day time span accompanied by progressive weakness, severe thirst and generalized malaise. He states he has been unable to keep down food or fluids for the last 3 days. He admits prior similar symptoms with his recently diagnosed chronic cyclic vomiting and he further admits to having been diagnosed with diabetes mellitus but he does not follow a diet or take any medications as part of treatment for this diagnosis. He denies identification o f any additional aggravating or ameliorating factors for his vomiting. In the emergency room he was found to have severe acidosis with ketosis and an elevated blood sugar of 791. The diagnosis of acute diabetic ketoacidosis was established and the patient was subsequently admitted to the ICU for further evaluation and treatment. Past Medical History Cardiac Medical History: Denies: Coronary Artery Disease, Hypertension Pulmonary Medical History: Denies: Asthma, Chronic Obstructive Pulmonary Disease (COPD) EENT Medical History: Denies: Cataracts, Ears - Hearing aids Neurological Medical History: Denies: Multiple Sclerosis, Seizures Endocrine Medical History: Reports: Diabetes Mellitus Type 2 - Diet controlled, Obesity Denies: Hyperthyroidism, Hypothyroidism Renal/ Medical History: Denies: Chronic Kidney Disease, Nephrolithiasis Malignancy Medical History: Reports: None GI Medical History: Denies: Cirrhosis, Hepatitis Musculoskeltal Medical History: Denies: Arthritis, Gout Skin Medical History: Denies: Eczema, Psoriasis Psychiatric Medical History: Reports: Tobacco Dependency Denies: Alcohol Dependency, Substance Abuse Traumatic Medical History: Reports: None Hematology: Denies: Anemia, Bleeding Tendencies Infectious Medical History: Reports: None Past Surgical History Past Surgical History: Reports: Tonsillectomy Social History Information Source: Patient Lives with: Spouse/Significant other Smoking Status: Never Smoker Frequency of Alcohol Use: None Hx Recreational Drug Use: No Drugs: None Hx Prescription Drug Abuse: No - Advance Directive Resuscitation Status: Full Code Surrogate healthcare decision maker:: Valeria Maradiaga Family History Family History: CAD, DM, Hypertension, Malignancy Parental Family History Reviewed: Yes Children Family History Reviewed: No Sibling(s) Family History Reviewed.: Yes Medication/Allergy Home Medications: Amitriptyline HCl [Elavil 50 mg Tablet] 50 mg PO QHS 02/09/19 Allergies/Adverse Reactions: No Known Allergies Allergy (Verified 05/22/18 09:36) Review of Systems Constitutional: PRESENT: as per HPI, weakness - Generalized weakness, other - Malaise. ABSENT: chills, fever(s) Eyes: ABSENT: visual disturbances, other - Eye pain Ears: ABSENT: hearing changes, other - Ear pain Nose, Mouth, and Throat: ABSENT: mouth pain, sore throat Cardiovascular: ABSENT: chest pain, dyspnea on exertion, palpitations Respiratory: ABSENT: cough, dyspnea Gastrointestinal: PRESENT: as per HPI, nausea, vomiting. ABSENT: abdominal pain, constipation, diarrhea Genitourinary: ABSENT: dysuria, hematuria Musculoskeletal: ABSENT: joint swelling, muscle weakness Integumentary: ABSENT: pruritus, rash Neurological: ABSENT: confusion, convulsions, focal weakness, memory loss, syncope Psychiatric: ABSENT: anxiety, depression Endocrine: ABSENT: cold intolerance, heat intolerance Hematologic/Lymphatic: ABSENT: easy bleeding, easy bruising Physical Exam Vital Signs: Temp Pulse Resp BP Pulse Ox 97.3 F 180 H 32 H 153/87 H 100 02/08/19 22:55 02/09/19 01:30 02/09/19 01:30 02/09/19 01:02 02/09/19 01:05 Intake & Output 02/07/19 02/08/19 02/09/19 23:59 23:59 23:59 Intake Total 1999 Balance 1999 Weight 113.4 kg General appearance: PRESENT: no acute distress, cooperative, obese Head exam: PRESENT: atraumatic, normocephalic Eye exam: ABSENT: conjunctival injection, scleral icterus Ear exam: PRESENT: normal external ear exam. ABSENT: bleeding, drainage Mouth exam: PRESENT: dry mucosa, neck supple Neck exam: ABSENT: JVD, thyromegaly, tracheal deviation Respiratory exam: PRESENT: clear to auscultation terra, symmetrical, tachypnea, unlabored Cardiovascular exam: PRESENT: RRR, tachycardia. ABSENT: clicks, gallop, rubs Pulses: PRESENT: normal radial pulses, normal dorsalis pedis pul Vascular exam: PRESENT: normal capillary refill. ABSENT: pallor GI/Abdominal exam: PRESENT: hypoactive bowel sounds, soft Rectal exam: PRESENT: deferred Extremities exam: ABSENT: joint swelling, pedal edema Musculoskeletal exam: PRESENT: full ROM, normal inspection Neurological exam: PRESENT: alert, oriented to person, oriented to place, or iented to time, oriented to situation, CN II-XII grossly intact. ABSENT: motor sensory deficit Psychiatric exam: PRESENT: appropriate affect, normal mood Skin exam: PRESENT: dry, intact, warm. ABSENT: jaundice, rash, urticaria Results Laboratory Results: 02/09/19 00:18 02/09/19 00:18 02/09/19 02/09/19 02/09/19 00:18 00:18 00:18 WBC 27.5 H RBC 6.03 H Hgb 16.8 Hct 53.2 H MCV 88 MCH 27.9 MCHC 31.6 L RDW 13.4 Plt Count 355 Seg Neutrophils % Not Reportable Lymphocytes % Not Reportable Monocytes % Not Reportable Eosinophils % Not Reportable Basophils % Not Reportable Absolute Neutrophils Not Reportable Absolute Lymphocytes Not Reportable Absolute Monocytes Not Reportable Absolute Eosinophils Not Reportable Absolute Basophils Not Reportable VBG pH 6.99 L* VBG pCO2 20.5 L VBG HCO3 4.9 L VBG Base Excess -25.1 Sodium 132.5 L Potassium 6.9 H* Chloride 93 L Carbon Dioxide < 5 L* Anion Gap Not Reportable BUN 35 H Creatinine 2.00 H Est GFR ( Amer) 47 L Est GFR (Non-Af Amer) 39 L Glucose 719 H* Calcium 10.1 Total Bilirubin 0.8 AST 19 ALT 26 Alkaline Phosphatase 118 Total Protein 8.5 H Albumin 5.2 H Lipase 139.1 Assessment and Plan - Diagnosis (1) DKA (diabetic ketoacidoses) Qualifiers: Diabetes mellitus type: type 2 Diabetes mellitus complication detail: without coma Qualified Code(s): E11.10 - Type 2 diabetes mellitus with ketoacidosis without coma Is this a current diagnosis for this admission?: Yes Plan: Patient will be admitted to the intensive care unit. He will receive supportive and symptomatic cares as required for his associated nausea and vomiting. He will be receiving IV fluids in the form of lactated Ringer's 167 mL/h and a bicarbonate drip at 333 mL/h as well as a insulin infusion based on the insulin infusion protocol. Serial venous blood gases and metabolic profiles will be obtained every 4 hours to monitor and evaluate the patient's progress. (2) Vomiting Qualifiers: Vomiting type: unspecified Vomiting Intractability: intractable Nausea presence: with nausea Qualified Code(s): R11.2 - Nausea with vomiting, unspecified Is this a current diagnosis for this admission?: Yes Plan: Patient be treated with Reglan 10 mg IV before meals and at bedtime beginning DELFINA. It is quite possible the patient has some degree of gastroparesis based upon his diabetes rather than cyclic vomiting. He will be started on a diabetic diet and will receive supplemental Zofran as needed for control of nausea and vomiting. Patient's generalized malaise will be treated with Tylenol 650 mg p.o. every 4 hours. Pain not responsive to Tylenol will be treated with Nubain 10 mg IV every 3 hours on an as-needed basis. (3) Type 2 diabetes mellitus, uncontrolled Qualifiers: Glycemic state: with hyperglycemia Qualified Code(s): E11.65 - Type 2 diabetes mellitus with hyperglycemia Is this a current diagnosis for this admission?: Yes Plan: Patient's blood sugar will be controlled initially with an insulin infusion and a transition to either oral therapy with metformin and/or other oral agents should be undertaken when his DKA has resolved. 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 - Time Time Spent with patient: 25-34 minutes Medications reviewed and adjusted accordingly: Yes Anticipated discharge: Home - Inpatient Certification Based on my medical assessment, after consideration of the patient's comorbidities, presenting symptoms, or acuity I expect that the services needed warrant INPATIENT care.: Yes I certify that my determination is in accordance with my understanding of Medicare's requirements for reasonable and necessary INPATIENT services [42 CFR 412.3e].: Yes Medical Necessity: Need Close Monitoring Due to Risk of Patient Decompensation, Need For IV Fluids, Need For Continuous Telemetry Monitoring, Risk of Complication if Not Cared For in Hospital, Risk of Diagnosis Which Will Require Inpatient Eval/Care/Monitoring
[2019-02-09] MEDS ORDERED: POTASSI CL 20 MEQ/D5-1/2NS 1L 1,000 ML IV ONE (12:12)
[2019-02-09] MEDS: POTASSI CL 20 MEQ/D5-1/2NS 1L 1000 ML IV PRN ×2 (12:16→18:56)
[2019-02-09 13:21] LABS: BLOOD UREA NITROGEN 23 mg/dL (7-20); CALCIUM 9.3 mg/dL (8.4-10.2); CARBON DIOXIDE 17 mmol/L (22-30); CHLORIDE 103 mmol/L (98-107); GLUCOSE 157 mg/dL (75-110); POTASSIUM 4.4 mmol/L (3.6-5.0)
[2019-02-09 13:30] LABS: SODIUM 139.4 mmol/L (137-145)
[2019-02-09 13:32] LABS: ANION GAP 19 (5-19)
[2019-02-09] MEDS ORDERED: DEXTROSE 50%-WATER SYRINGE 12.5 GM/25 ML DOSE IV PRN (14:00)
[2019-02-09] MEDS ORDERED: DEXTROSE 40% GEL 15 GM TUBE X 2 PO PRN (14:00)
[2019-02-09] MEDS ORDERED: DEXTROSE 50%-WATER SYRINGE 25 GM/50 ML DOSE IV PRN (14:00)
[2019-02-09] MEDS: INSULIN, REGULAR 100 UNIT/100 ML NORMAL SALINE IV PRN ×4 (14:25→19:07)
[2019-02-09 17:03] LABS: BLOOD UREA NITROGEN 20 mg/dL (7-20); CALCIUM 9.3 mg/dL (8.4-10.2); GLUCOSE 233 mg/dL (75-110); POTASSIUM 4.4 mmol/L (3.6-5.0)
[2019-02-09 17:09] LABS: CARBON DIOXIDE 14 mmol/L (22-30); CHLORIDE 99 mmol/L (98-107); SODIUM 135.6 mmol/L (137-145)
[2019-02-09 17:13] LABS: ANION GAP 23 (5-19)
[2019-02-09] MEDS: FAMOTIDINE INJ/PF 20 MG/2 ML SDV IV SCH (17:15)
--- NOTE | 2019-02-09 17:43 | Progress Note ---
Provider Note Provider Note: Bicarb drip was stopped. Patient's IV fluids were adjusted. He continues on insulin drip. Glucoses are lower, anion gap is coming down and his bicarb is coming up. We will continue him on the drip until he is out of DKA.
--- NOTE | 2019-02-09 19:25 | EKG REPORT ---
SEVERITY:- ABNORMAL ECG - SINUS TACHYCARDIA PROLONGED QT INTERVAL : Confirmed by: Gini Adams MD 09-Feb-2019 19:24:46
[2019-02-09 20:22] LABS: VENOUS BLOOD BASE EXCESS -5.4 mmol/L; VENOUS BLOOD HCO3 19.4 mmol/L (20-32); VENOUS BLOOD PCO2 35.9 mmHg (35-63); VENOUS BLOOD PH 7.35 (7.30-7.42)
[2019-02-09 20:32] LABS: ANION GAP 15 (5-19); BLOOD UREA NITROGEN 17 mg/dL (7-20); CALCIUM 9.3 mg/dL (8.4-10.2); CARBON DIOXIDE 21 mmol/L (22-30); CHLORIDE 102 mmol/L (98-107); GLUCOSE 137 mg/dL (75-110); SODIUM 137.6 mmol/L (137-145)
[2019-02-10 01:26] LABS: VENOUS BLOOD BASE EXCESS -3.8 mmol/L; VENOUS BLOOD HCO3 21.3 mmol/L (20-32); VENOUS BLOOD PCO2 39.2 mmHg (35-63); VENOUS BLOOD PH 7.35 (7.30-7.42)
[2019-02-10 01:46] LABS: ANION GAP 14 (5-19); BLOOD UREA NITROGEN 15 mg/dL (7-20); CALCIUM 8.8 mg/dL (8.4-10.2); CARBON DIOXIDE 21 mmol/L (22-30); CHLORIDE 105 mmol/L (98-107); GLUCOSE 93 mg/dL (75-110); POTASSIUM 3.5 mmol/L (3.6-5.0); SODIUM 140.1 mmol/L (137-145)
[2019-02-10] MEDS: POTASSI CL 20 MEQ/D5-1/2NS 1L 1000 ML IV PRN (01:51)
[2019-02-10] MEDS: FAMOTIDINE INJ/PF 20 MG/2 ML SDV IV SCH (05:21)
[2019-02-10] MEDS: HEPARIN SOD (PORCINE) 5,000 UNIT/ML 1 ML SYRINGE SUBCUT SCH (05:21)
[2019-02-10 07:05] LABS: HEMATOCRIT 41.7 % (37.9-51.0); HEMOGLOBIN 14.4 g/dL (13.5-17.0); MEAN CORPUSCULAR HEMOGLOBIN 27.9 pg (27.0-33.4); MEAN CORPUSCULAR HGB CONC 34.6 g/dL (32.0-36.0); MEAN CORPUSCULAR VOLUME 81 fl (80-97); PLATELET COUNT 209 10^3/uL (150-450); RED BLOOD COUNT 5.17 10^6/uL (4.35-5.55); RED CELL DISTRIBUTION WIDTH 12.9 % (11.5-14.0); VENOUS BLOOD BASE EXCESS -5.1 mmol/L; VENOUS BLOOD HCO3 19.4 mmol/L (20-32); VENOUS BLOOD PCO2 35.1 mmHg (35-63); VENOUS BLOOD PH 7.36 (7.30-7.42); WHITE BLOOD COUNT 12.7 10^3/uL (4.0-10.5)
[2019-02-10 07:33] LABS: ANION GAP 13 (5-19); BLOOD UREA NITROGEN 13 mg/dL (7-20); CALCIUM 8.8 mg/dL (8.4-10.2); CARBON DIOXIDE 20 mmol/L (22-30); CHLORIDE 103 mmol/L (98-107); CHOLESTEROL 228.52 mg/dL (0-200); GLUCOSE 185 mg/dL (75-110); POTASSIUM 3.7 mmol/L (3.6-5.0); SODIUM 136.4 mmol/L (137-145); TRIGLYCERIDES 181 mg/dL (<150)
[2019-02-10 07:43] LABS: DIRECT LDL 176 mg/dL (<100)
[2019-02-10 07:44] LABS: VLDL CHOLESTEROL 36.2 mg/dL (10-31)
[2019-02-10 07:48] LABS: FREE T3 2.69 pg/mL (2.77-5.27); FREE T4 (FREE THYROXINE) 1.48 ng/dL (0.78-2.19)
[2019-02-10] MEDS ORDERED: INSULIN REG, HUMAN 100 UNIT/ML 3 ML VIAL (PYX) SUBCUT SCH (08:00)
[2019-02-10] MEDS ORDERED: INSULIN GLARGINE,HUM.REC.ANLOG 1,000 UNIT/10 ML VIAL SUBCUT SCH ×2 (08:00→16:00)
[2019-02-10 08:01] LABS: THYROID STIMULATING HORMONE 0.48 uIU/mL (0.47-4.68)
[2019-02-10] MEDS ORDERED: INSULIN GLARGINE,HUM.REC.ANLOG 1,000 UNIT/10 ML VIAL (PYX) SUBCUT SCH (08:15)
[2019-02-10] MEDS: METOCLOPRAMIDE HCL INJ/PF 10 MG/2 ML SDV IV SCH (08:18)
[2019-02-10 09:49] VITALS: BP 146/81
[2019-02-10] MEDS: PANTOPRAZOLE SODIUM 40 MG VIAL IV SCH (09:51)
[2019-02-10] MEDS: DOCUSATE SODIUM 100 MG CAPSULE PO SCH (09:52)
--- NOTE | 2019-02-10 13:35 | PDOC DISCHARGE SUMMARY ---
General - Admit/Disc Date/PCP Admission Date/Primary Care Provider: 02/09/19 01:35 Discharge Date: 02/10/19 - Discharge Diagnosis (1) DKA (diabetic ketoacidoses) Is this a current diagnosis for this admission?: Yes Summary: Resolved with IV fluids, electrolyte management, and an insulin drip. (2) Obesity (BMI 30.0-34.9) Is this a current diagnosis for this admission?: Yes Summary: Encouraged lifestyle modification - Additional Information Resuscitation Status: Full Code Discharge Diet: Diabetic Discharge Activity: Activity As Tolerated Prescriptions: Blood Sugar Diagnostic [Blood Glucose Test] 1 each AC #90 strip Blood-Glucose Meter [Blood Glucose Meter] 1 each AC #1 each Insulin Glargine,Hum.rec.anlog [Toujeo Solostar] 25 unit SQ QHS #1 insuln.pen Insulin Lispro [Humalog Kwikpen U-100] See Protocol SQ AC #1 insuln.pen Home Medications: Amitriptyline HCl [Elavil 50 mg Tablet] 50 mg PO QHS 02/09/19 Blood Sugar Diagnostic [Blood Glucose Test] 1 each AC #90 strip 02/10/19 Blood-Glucose Meter [Blood Glucose Meter] 1 each AC #1 each 02/10/19 Insulin Glargine,Hum.rec.anlog [Toujeo Solostar] 25 unit SQ QHS #1 insuln.pen 02/10/19 Insulin Lispro [Humalog Kwikpen U-100] See Protocol SQ AC #1 insuln.pen 02/10/19 History of Present Illness History of Present Illness: SAMMIE HERRERA is a 33 year old male who presented to the emergency room with a 3-day history of vomiting. Patient indicates that he began having frequent episodes of vomiting 3 days prior to his emergency room presentation and over the last 48 hours prior to coming to the emergency room his vomiting had become extremely severe having at least 50 emeses (small amounts of clear or foamy liquid and mucus) over that 2-day time span accompanied by progressive weakness, severe thirst and generalized malaise. He states he has been unable to keep down food or fluids for the last 3 days. He admits prior similar symptoms with his recently diagnosed chronic cyclic vomiting and he further admits to having been diagnosed with diabetes mellitus but he does not follow a diet or take any medications as part of treatment for this diagnosis. He denies identification of any additional aggravating or ameliorating factors for his vomiting. In the emergency room he was found to have severe acidosis with ketosis and an elevated blood sugar of 791. The diagnosis of acute diabetic ketoacidosis was established and the patient was subsequently admitted to the ICU for further evaluation and treatment. Hospital Course Hospital Course: He responded to IV fluids, insulin drip, and electrolyte management. Once he got out of DKA, he was transitioned over to a basal bolus insulin regimen. He was diagnosed with diabetes years ago, he says, but for the last several months has not been maintaining any kind of medication regimen or dietary control. He has insurance but does not have a primary care provider, and I strongly recommended to him that he get a primary care provider soon as possible. He was sent home on a regimen of Toujeo once a day and Humalog sliding scale. He has used insulin before and knows how to use a sliding scale and administer his own insulin. His labs and examination were reassuring and he was discharged in good condition. Physical Exam Vital Signs: Temp Pulse Resp BP Pulse Ox 98.9 F 101 H 17 146/81 H 100 02/10/19 10:38 02/10/19 10:38 02/10/19 10:38 02/10/19 07:36 02/10/19 10:38 Intake & Output 02/09/19 02/10/19 02/11/19 06:59 06:59 06:59 Intake Total 2013 5574 1000 Output Total 850 1575 Balance 1163 3999 1000 Weight 111.3 kg 111.7 kg General appearance: PRESENT: no acute distress, cooperative, disheveled, obese Respiratory exam: PRESENT: clear to auscultation terra, symmetrical, unlabored. ABSENT: accessory muscle use, chest wall tenderness, crackles, prolonged expiratory phas, rhonchi, tachypnea, wheezes Cardiovascular exam: PRESENT: RRR, +S1, +S2 Pulses: PRESENT: normal carotid pulses Vascular exam: PRESENT: normal capillary refill GI/Abdominal exam: PRESENT: normal bowel sounds, soft. ABSENT: distended, guarding, rebound, tenderness Extremities exam: ABSENT: clubbing, pedal edema Musculoskeletal exam: PRESENT: normal inspection. ABSENT: deformity Neurological exam: PRESENT: alert, awake, oriented to person, oriented to place, oriented to time, oriented to situation Psychiatric exam: PRESENT: appropriate affect, normal mood Skin exam: PRESENT: dry, warm Results Laboratory Results: 02/10/19 06:22 02/10/19 06:22 02/09/19 02/09/19 02/09/19 12:22 16:19 20:10 WBC RBC Hgb Hct MCV MCH MCHC RDW Plt Count VBG pH VBG pCO2 VBG HCO3 VBG Base Excess Sodium 139.4 135.6 L 137.6 Potassium 4.4 4.4 4.0 Chloride 103 99 102 Carbon Dioxide 17 L 14 L 21 L Anion Gap 19 23 H 15 BUN 23 H 20 17 Creatinine 0.77 0.77 0.77 Est GFR ( Amer) > 60 > 60 > 60 Est GFR (Non-Af Amer) > 60 > 60 > 60 Glucose 157 H 233 H 137 H Calcium 9.3 9.3 9.3 Magnesium Triglycerides Cholesterol LDL Cholesterol Direct VLDL Cholesterol HDL Cholesterol TSH Free T4 Free T3 pg/mL 02/09/19 02/10/19 02/10/19 20:10 01:18 01:18 WBC RBC Hgb Hct MCV MCH MCHC RDW Plt Count VBG pH 7.35 7.35 VBG pCO2 35.9 39.2 VBG HCO3 19.4 L 21.3 VBG Base Excess -5.4 -3.8 Sodium 140.1 Potassium 3.5 L Chloride 105 Carbon Dioxide 21 L Anion Gap 14 BUN 15 Creatinine 0.71 Est GFR ( Amer) > 60 Est GFR (Non-Af Amer) > 60 Glucose 93 Calcium 8.8 Magnesium Triglycerides Cholesterol LDL Cholesterol Direct VLDL Cholesterol HDL Cholesterol TSH Free T4 Free T3 pg/mL 02/10/19 02/10/19 02/10/19 06:22 06:22 06:22 WBC 12.7 H RBC 5.17 Hgb 14.4 Hct 41.7 MCV 81 MCH 27.9 MCHC 34.6 RDW 12.9 Plt Count 209 VBG pH VBG pCO2 VBG HCO3 VBG Base Excess Sodium 136.4 L Potassium 3.7 Chloride 103 Carbon Dioxide 20 L Anion Gap 13 BUN 13 Creatinine 0.58 Est GFR ( Amer) > 60 Est GFR (Non-Af Amer) > 60 Glucose 185 H Calcium 8.8 Magnesium 2.3 Triglycerides 181 H Cholesterol 228.52 H LDL Cholesterol Direct 176 H VLDL Cholesterol 36.2 H HDL Cholesterol 42 TSH 0.48 Free T4 1.48 Free T3 pg/mL 2.69 L 02/10/19 06:22 WBC RBC Hgb Hct MCV MCH MCHC RDW Plt Count VBG pH 7.36 VBG pCO2 35.1 VBG HCO3 19.4 L VBG Base Excess -5.1 Sodium Potassium Chloride Carbon Dioxide Anion Gap BUN Creatinine Est GFR ( Amer) Est GFR (Non-Af Amer) Glucose Calcium Magnesium Triglycerides Cholesterol LDL Cholesterol Direct VLDL Cholesterol HDL Cholesterol TSH Free T4 Free T3 pg/mL Qualifiers - * PATIENT BEING DISCHARGED WITH ANY OF THE FOLLOWING DIAGNOSIS: No Acute Heart Failure Is this a Heart Failure Patient?: No Plan Time Spent: Greater than 30 Minutes
[2019-02-11] MEDS ORDERED: INSULIN GLARGINE,HUM.REC.ANLOG 1,000 UNIT/10 ML VIAL SUBCUT SCH (08:00)
== END 2019-02-10 11:20 | disposition home or self-care (01) | DRG 639 ==
LOC: ER 21:48 → EH 02-09 01:35 → 3W 02-09 05:48
PROVIDERS: ADMIT Emergency Medicine; ATTEND Emergency Medicine
DX: E11.10 Type 2 diabetes mellitus with ketoacidosis without coma (principal); E66.9 Obesity, unspecified; Z68.33 Body mass index [BMI] 33.0-33.9, adult; Z83.3 Family history of diabetes mellitus; Z82.49 Family history of ischemic heart disease and other diseases of the circulatory system
CPT/HCPCS: 36415; 80048; 80053; 80061; 80307; 81001; 82803; 82962; 83036; 83690; 83735; 84439; 84443; 84481; 85025; 85027; 93005; 93010; 96361; 96374; 99291; J1644; J1815; J2405; J2765; J3480; J3490; J7030; J7060; J7120; S0028; S0164

== ENCOUNTER 2020-01-12 09:19 | Emergency (ER) | payer BC ==
[2020-01-12] MEDS ORDERED: METOCLOPRAMIDE HCL INJ/PF 10 MG/2 ML SDV IV ONE (09:41)
[2020-01-12] MEDS ORDERED: NORMAL SALINE 1000 ML 1,000 ML IV ONE (09:41)
[2020-01-12 09:57] LABS: ABSOLUTE BASOPHILS # (AUTO) 0.1 10^3/uL (0.0-0.2); ABSOLUTE LYMPHOCYTES (AUTO) 4.6 10^3/uL (0.5-4.7); ABSOLUTE MONOCYTES (AUTO) 1.4 10^3/uL (0.1-1.4); ABSOLUTE NEUT (AUTO) 11.8 10^3/uL (1.7-8.2); BASOPHILS % (AUTO) 0.4 % (0-2); EOSINOPHILS % (AUTO) 0.2 % (0-6); HEMATOCRIT 46.8 % (37.9-51.0); HEMOGLOBIN 16.2 g/dL (13.5-17.0); LYMPHOCYTES % (AUTO) 25.7 % (13-45); MEAN CORPUSCULAR HEMOGLOBIN 28.7 pg (27.0-33.4); MEAN CORPUSCULAR HGB CONC 34.6 g/dL (32.0-36.0); MEAN CORPUSCULAR VOLUME 83 fl (80-97); MONOCYTES % (AUTO) 7.9 % (3-13); PLATELET COUNT 328 10^3/uL (150-450); RED BLOOD COUNT 5.65 10^6/uL (4.35-5.55); RED CELL DISTRIBUTION WIDTH 13.7 % (11.5-14.0); SEGMENTED NEUTROPHILS % (AUTO) 65.8 % (42-78); TOTAL CELLS COUNTED % (AUTO) 100 %; WHITE BLOOD COUNT 17.9 10^3/uL (4.0-10.5)
--- NOTE | 2020-01-12 10:02 | ER Document Report ---
Entered by YAHAIRA WHATLEY SCRIBE 01/12/20 0940 Acting as scribe for:GARRETT BEASLEY MD ED General - General Chief Complaint: Vomiting Stated Complaint: NAUSEA Time Seen by Provider: 01/12/20 09:31 Primary Care Provider: AINSLEY VIERA PA-C [Primary Care Provider] - Follow up as needed Information source: Patient Notes: This 34-year-old male presents to the emergency department complaining of abdominal pain that began 5 days ago. Patient describes the pain as more severe than his normal abdominal pain. Patient explains that he went home early from work 5 days ago for not feeling well, he took the day off four days ago and three days ago he began to have vomiting episodes that lasted for about 24 hours. Patient reports diarrhea today. Patient states that his vomiting and abdominal pain is better at the moment. Patient reports poor appetite and high blood sugar that he "hasn't been able to get below 150". Patient said that his blood sugar has been around 190s. Patient denies fever and cough. TRAVEL OUTSIDE OF THE [place] IN LAST 30 DAYS: No - Related Data Allergies/Adverse Reactions: No Known Allergies Allergy (Verified 05/22/18 09:36) Home Medications: Humalog Past Medical History - General Information source: Patient - Social History Smoking Status: Never Smoker Cigarette use (# per day): No Chew tobacco use (# tins/day): No Frequency of alcohol use: None Drug Abuse: Marijuana Family History: CAD, DM, Hypertension, Malignancy Patient has homicidal ideation: No Endocrine Medical History: Reports: Hx Diabetes Mellitus Type 2 Past Surgical History: Reports: Hx Tonsillectomy Review of Systems - Review of Systems Constitutional: See HPI. denies: Fever EENT: No symptoms reported Cardiovascular: No symptoms reported Respiratory: See HPI. denies: Cough Gastrointestinal: See HPI, Abdominal pain, Diarrhea, Nausea, Vomiting, Poor appetite Genitourinary: No symptoms reported Male Genitourinary: No symptoms reported Musculoskeletal: No symptoms reported Skin: No symptoms reported Hematologic/Lymphatic: No symptoms reported Neurological/Psychological: No symptoms reported -: Yes All other systems reviewed and negative Physical Exam - Vital signs Vitals: Temp Pulse Resp BP Pulse Ox 98.8 F 114 H 17 135/96 H 100 01/12/20 09:24 01/12/20 09:24 01/12/20 09:24 01/12/20 09:24 01/12/20 09:24 - Notes Notes: Physical Exam: General: Alert, appears well. HEENT: Normocephalic. Atraumatic. PERRL. Extraocular movements intact. Oropharynx clear. Neck: Supple. Non-tender. Respiratory: No respiratory distress. Clear and equal breath sounds bilaterally. Cardiovascular: Regular rate and rhythm. Abdominal: Obese. Non-tender. No distension. Normal Bowel Sounds. Back: No gross abnormalities. Extremities: Moves all four extremities. Upper extremities: Normal inspection. Normal ROM. Lower extremities: Normal inspection. No edema. Normal ROM. Neurological: Normal cognition. AAOx4. Normal speech. Psychological: Normal affect. Normal Mood. Skin: Warm. Dry. Normal color. Course - Re-evaluation Re-evalutation: 01/12/20 12:30 Patient states she is feeling much better at this time. The Reglan helped him relax. He states he feels like this is all entirely an episode of cyclic vomiting, states has not had 1 of these episodes in quite some time, states it usually takes about 5 to 7 days from beginning to end of 1 of these episodes. He feels comfortable going home, will give him another liter fluid for a total of 3, and discharge him with a prescription for Reglan. He has not had any diarrhea while here. 01/12/20 12:31 Patient does have an elevated white blood cell count without shift consistent with the stress of all the vomiting. He does not have a metabolic acidosis so there is no concern for DKA. - Vital Signs Vital signs: Temp Pulse Resp BP Pulse Ox 98.8 F 114 H 17 135/96 H 100 01/12/20 09:26 01/12/20 09:24 01/12/20 09:24 01/12/20 09:24 01/12/20 09:24 - Laboratory Result Diagrams: 01/12/20 09:32 01/12/20 09:32 Laboratory results interpreted by me: 01/12/20 01/12/20 01/12/20 09:32 09:32 09:36 WBC 17.9 H RBC 5.65 H Absolute Neuts (auto) 11.8 H Chloride 96 L Glucose 215 H POC Glucose Creatine Kinase 212 H Total Protein 8.5 H Albumin 5.1 H Urine Protein 100 H Urine Ketones 20 H Urine Bilirubin SMALL H Urine Urobilinogen 2.0 H Ur Leukocyte Esterase TRACE H Urine Ascorbic Acid 40 H 01/12/20 09:38 WBC RBC Absolute Neuts (auto) Chloride Glucose POC Glucose 190 H Creatine Kinase Total Protein Albumin Urine Protein Urine Ketones Urine Bilirubin Urine Urobilinogen Ur Leukocyte Esterase Urine Ascorbic Acid Discharge - Discharge Clinical Impression: Vomiting Qualifiers: Vomiting type: cyclical vomiting syndrome unrelated to migraine Qualified Code(s): R11.15 - Cyclical vomiting syndrome unrelated to migraine Type 2 diabetes mellitus Qualifiers: Diabetes mellitus snf insulin use: with snf use Diabetes mellitus complication status: without complication Qualified Code(s): E11.9 - Type 2 diabetes mellitus without complications Condition: Stable Disposition: HOME, SELF-CARE Additional Instructions: Your evaluation today does suggest this is an episode of your cyclic vomiting. You are not in diabetic ketoacidosis. Take the medications as prescribed for nausea. Drink plenty of fluids and get plenty of rest. Check your sugars regularly. Follow-up with your primary care provider Tuesday if not improving. RETURN TO THE EMERGENCY ROOM IF ANY NEW OR WORSENING SYMPTOMS. Prescriptions: Metoclopramide HCl [Reglan 10 mg Tablet] 10 mg PO ASDIR PRN #20 tablet PRN Reason: Referrals: AINSLEY VIERA PA-C [Primary Care Provider] - Follow up as needed I personally performed the services described in the documentation, reviewed and edited the documentation which was dictated to the scribe in my presence, and it accurately records my words and actions.
[2020-01-12 10:05] LABS: APPEARANCE,URINE SLIGHTLY-CLOUDY; BILIRUBIN,URINE SMALL (NEGATIVE); COLOR,URINE AMBER; GLUCOSE, URINE NEGATIVE (NEGATIVE); KETONES,URINE 20 mg/dL (NEGATIVE); LEUKOCYTE ESTERASE,URINE TRACE (NEGATIVE); NITRITE,URINE NEGATIVE (NEGATIVE); PROTEIN,URINE 100 mg/dL (NEGATIVE); URINE SPECIFIC GRAVITY 1.032
[2020-01-12 10:12] LABS: ALBUMIN 5.1 g/dL (3.5-5.0); ALKALINE PHOSPHATASE 74 U/L (38-126); ANION GAP 11 (5-19); ASPARTATE AMINO TRANSFERASE 23 U/L (17-59); BILIRUBIN,TOTAL 0.9 mg/dL (0.2-1.3); BLOOD UREA NITROGEN 14 mg/dL (7-20); CALCIUM 9.9 mg/dL (8.4-10.2); CARBON DIOXIDE 30 mmol/L (22-30); CHLORIDE 96 mmol/L (98-107); CREATINE KINASE 212 U/L (55-170); GLUCOSE 215 mg/dL (75-110); POTASSIUM 3.8 mmol/L (3.6-5.0); TOTAL PROTEIN 8.5 g/dL (6.3-8.2)
[2020-01-12] MEDS ORDERED: RINGERS SOLUTION,LACTATED 1,000 ML IV ONE ×2 (10:45→12:26)
[2020-01-12 13:27] VITALS: BP 136/85
== END 2020-01-12 13:27 | disposition home or self-care (01) ==
LOC: ER 09:19
DX: R11.15 Cyclical vomiting syndrome unrelated to migraine (principal); R10.9 Unspecified abdominal pain; R19.7 Diarrhea, unspecified; D72.829 Elevated white blood cell count, unspecified; E11.9 Type 2 diabetes mellitus without complications; Z79.4 Long term (current) use of insulin
CPT/HCPCS: 99283; 96361; 96374; 36415; 82962; 82550; 83690; 83735; 85025; 80053; 81001; J2765; J7030; J7120

== ENCOUNTER 2020-02-24 07:56 | Emergency (ER) | payer BC ==
[2020-02-24] MEDS ORDERED: ONDANSETRON HCL INJ/PF 4 MG/2 ML SDV IV ONE (07:59)
[2020-02-24] MEDS ORDERED: NORMAL SALINE 1000 ML 1,000 ML IV ONE (07:59)
[2020-02-24] MEDS ORDERED: PROMETHAZINE HCL INJ 25 MG/1 ML VIAL IV ONE (08:23)
--- NOTE | 2020-02-24 08:25 | ER Document Report ---
ED GI/ - General Chief Complaint: Nausea/Vomiting Stated Complaint: NAUSEA,VOMITING,SHORT OF BREATH Time Seen by Provider: 02/24/20 07:59 Primary Care Provider: AINSLEY VIERA PA-C [Primary Care Provider] - Follow up as needed Notes: HPI: 34-year-old male with past medical history as recorded including diabetes a nd cyclic vomiting syndrome presents today with the onset yesterday and today multiple episodes of nonbloody nonbilious vomiting. 10 in total. Some mild diffuse nonspecific abdominal discomfort. No diarrhea or fevers. Patient has been seen here before for this with a urine tox that is been positive for marijuana. Patient has never had any abdominal surgery or abdominal obstructions. No real aggravating relieving factors. No radiation to the back. Patient states mild shortness of breath but when questioned further he denies any cough or shortness of breath other than when vomiting. No chest or back pain. ROS: See HPI All other review of systems reviewed and otherwise negative Reviewed vital signs and nursing note as charted by RN. PHYSICAL EXAM: CONSTITUTIONAL: Patient is actively vomiting HEAD: Normocephalic; atraumatic EYES: PERRL; sclerae non-icteric ENT: Normal nose; no rhinorrhea; moist mucous membranes; pharynx without lesions noted NECK: Supple without meningismus; non-tender; no cervical lymphadenopathy, no masses CARD: Regular rate and rhythm; no murmurs; symmetric distal pulses RESP: Normal chest excursion without splinting or tachypnea; breath sounds clear and equal bilaterally ABD/GI: Normal bowel sounds; non-distended; soft, no focal tenderness with no abdominal masses BACK: The back appears normal and is non-tender to palpation EXT: Normal ROM in all joints; non-tender to palpation; no edema SKIN: No acute lesions noted NEURO: CN 2-12 intact; 5/5 bilateral upper and lower extremity strength with sensation intact to light touch PSYCH: The patient's mood and manner are appropriate. Grooming and personal hygiene are appropriate. TRAVEL OUTSIDE OF THE [place] IN LAST 30 DAYS: No - Related Data Allergies/Adverse Reactions: No Known Allergies Allergy (Verified 05/22/18 09:36) Past Medical History - Social History Smoking Status: Unknown if Ever Smoked Family History: CAD, DM, Hypertension, Malignancy - Past Medical History Cardiac Medical History: Denies: Hx Coronary Artery Disease, Hx Hypertension Pulmonary Medical History: Denies: Hx Asthma, Hx COPD Neurological Medical History: Denies: Hx Seizures Endocrine Medical History: Reports: Hx Diabetes Mellitus Type 2. Denies: Hx Hyperthyroidism, Hx Hypothyroidism Renal/ Medical History: Denies: Hx Peritoneal Dialysis GI Medical History: Denies: Hx Cirrhosis, Hx Hepatitis Musculoskeletal Medical History: Denies Hx Arthritis, Denies Hx Gout Skin Medical History: Denies Hx Eczema, Denies Hx Psoriasis Psychiatric Medical History: Denies: Hx Depression Infectious Medical History: Denies: Hx Hepatitis Past Surgical History: Reports: Hx Tonsillectomy Physical Exam - Vital signs Vitals: Temp Pulse Resp BP Pulse Ox 97.9 F 113 H 24 H 149/103 H 98 02/24/20 08:00 02/24/20 08:00 02/24/20 08:00 02/24/20 08:00 02/24/20 08:00 Course - Re-evaluation Re-evalutation: 02/24/20 08:25 Given the above history and physical we will provide fluids and nausea medications as well as obtain basic electrolytes and a liver panel and lipase. I would like to assess for the possibility of infection, transaminitis, pancreatitis, or other acute intra-abdominal pathology. Given no history of abdominal obstructions with a history of cyclic vomiting syndrome and the radiation risks, I will obtain a three-way x-ray of the abdomen instead of a CT scan initially. I will also obtain an EKG to see if I am able to benefit the patient with Haldol. Blood glucose as recorded by [employer]u[facility]. Patient does have a history of DKA. 02/24/20 08:55 EKG shows heart of 84, normal sinus rhythm, normal axis, no ST elevation or depression. Only borderline prolonged QT interval. I do believe Haldol would still be beneficial. Patient will be placed on the monitor. 02/24/20 09:31 Imaging as recorded. Labs as recorded. Patient is doing much better after the Haldol. 02/24/20 10:06 Patient is stating he feels much better. No tenderness on repeat abdominal examination. I have had a long discussion with the patient regarding marijuana usage and cessation. He does not believe he needs outpatient resources at this time. 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 Patient will be discharged home with strict return precautions as well as a prescription for Phenergan. - Vital Signs Vital signs: Temp Pulse Resp BP Pulse Ox 97.9 F 113 H 23 H 187/91 H 95 02/24/20 08:22 02/24/20 08:00 02/24/20 09:01 02/24/20 09:01 02/24/20 09:01 - Laboratory Result Diagrams: 02/24/20 08:20 02/24/20 08:20 Laboratory results interpreted by me: 02/24/20 02/24/20 08:20 08:20 WBC 14.7 H Absolute Neuts (auto) 9.8 H Glucose 246 H Albumin 5.1 H Discharge - Discharge Clinical Impression: Cyclical vomiting Condition: Good Disposition: HOME, SELF-CARE Additional Instructions: Come back immediately for any increased pain, persistent vomiting, blood in the vomit or diarrhea, fevers, or any other acute problems. Please make sure that you follow-up with your primary care physician for reassessment as discussed. Prescriptions: Promethazine HCl [Phenergan 25 mg Tablet] 25 mg PO Q6H PRN #15 tablet PRN Reason: Referrals: AINSLEY VIERA PA-C [Primary Care Provider] - Follow up as needed
[2020-02-24 08:34] LABS: ABSOLUTE BASOPHILS # (AUTO) 0.1 10^3/uL (0.0-0.2); ABSOLUTE EOSINOPHILS # (AUTO) 0.2 10^3/uL (0.0-0.6); ABSOLUTE LYMPHOCYTES (AUTO) 3.8 10^3/uL (0.5-4.7); ABSOLUTE MONOCYTES (AUTO) 0.8 10^3/uL (0.1-1.4); ABSOLUTE NEUT (AUTO) 9.8 10^3/uL (1.7-8.2); BASOPHILS % (AUTO) 0.5 % (0-2); EOSINOPHILS % (AUTO) 1.5 % (0-6); HEMATOCRIT 44.6 % (37.9-51.0); HEMOGLOBIN 15.1 g/dL (13.5-17.0); MEAN CORPUSCULAR HEMOGLOBIN 28.7 pg (27.0-33.4); MEAN CORPUSCULAR HGB CONC 33.9 g/dL (32.0-36.0); MEAN CORPUSCULAR VOLUME 85 fl (80-97); MONOCYTES % (AUTO) 5.4 % (3-13); PLATELET COUNT 292 10^3/uL (150-450); RED BLOOD COUNT 5.25 10^6/uL (4.35-5.55); RED CELL DISTRIBUTION WIDTH 13.4 % (11.5-14.0); SEGMENTED NEUTROPHILS % (AUTO) 66.6 % (42-78); TOTAL CELLS COUNTED % (AUTO) 100 %; WHITE BLOOD COUNT 14.7 10^3/uL (4.0-10.5)
--- NOTE | 2020-02-24 08:49 | RADIOLOGY REPORT (SQ) ---
EXAM DESCRIPTION: ACUTE ABDOMEN SERIES IMAGES COMPLETED DATE/TIME: 02/24/2020 8:39 am REASON FOR STUDY: vomiting COMPARISON: 01/23/2015. NUMBER OF VIEWS: Three views. TECHNIQUE: Frontal chest, supine abdomen and upright/decubitus abdomen radiographic images acquired. LIMITATIONS: None. FINDINGS: CHEST: Lungs clear of infiltrates. FREE AIR: None. No abnormal gas collections. BOWEL GAS PATTERN: Nonobstructive pattern. No dilated loops or air fluid levels. CALCIFICATIONS: No suspicious calcifications. HARDWARE: None in the abdomen. SOFT TISSUES: No gross mass or suggestion of organomegaly. BONES: No acute fracture. No worrisome bone lesions. OTHER: No other significant finding. IMPRESSION: NO RADIOGRAPHIC EVIDENCE FOR ACUTE ABDOMINAL DISEASE. TECHNICAL DOCUMENTATION: JOB ID: [id number] 2010 [employer]- All Rights Reserved Reading location - IP/workstation name: [email or web address]
[2020-02-24 08:52] LABS: ALBUMIN 5.1 g/dL (3.5-5.0); ALKALINE PHOSPHATASE 70 U/L (38-126); ANION GAP 9 (5-19); ASPARTATE AMINO TRANSFERASE 26 U/L (17-59); BILIRUBIN,TOTAL 0.5 mg/dL (0.2-1.3); BLOOD UREA NITROGEN 16 mg/dL (7-20); CARBON DIOXIDE 25 mmol/L (22-30); CHLORIDE 105 mmol/L (98-107); GLUCOSE 246 mg/dL (75-110); POTASSIUM 4.3 mmol/L (3.6-5.0); TOTAL PROTEIN 8.1 g/dL (6.3-8.2)
[2020-02-24] MEDS ORDERED: HALOPERIDOL LACTATE INJ 5 MG/1 ML VIAL IV ONE (08:52)
[2020-02-24 10:12] VITALS: BP 186/102
--- NOTE | 2020-02-24 20:39 | EKG REPORT ---
SEVERITY:- BORDERLINE ECG - SINUS RHYTHM BORDERLINE PROLONGED QT INTERVAL : Confirmed by: Gini Adams MD 24-Feb-2020 20:38:51
== END 2020-02-24 10:31 | disposition home or self-care (01) ==
LOC: ER 07:56
DX: R11.15 Cyclical vomiting syndrome unrelated to migraine (principal); R06.02 Shortness of breath; R10.9 Unspecified abdominal pain; F12.10 Cannabis abuse, uncomplicated; E11.9 Type 2 diabetes mellitus without complications
CPT/HCPCS: 93005; 99284; 96361; 96374; 96375; 36415; 83690; 85025; 80053; 74022; 93010; J1630; J2550; J2405; J7030

== ENCOUNTER 2020-02-26 03:49 | Emergency (ER) | payer BC ==
[2020-02-26] MEDS ORDERED: ONDANSETRON HCL INJ/PF 4 MG/2 ML SDV IV ONE (04:38)
[2020-02-26] MEDS ORDERED: NORMAL SALINE 1000 ML 1,000 ML IV ONE (04:38)
[2020-02-26 05:10] LABS: ABSOLUTE BASOPHILS # (AUTO) 0.1 10^3/uL (0.0-0.2); ABSOLUTE MONOCYTES (AUTO) 1.2 10^3/uL (0.1-1.4); ABSOLUTE NEUT (AUTO) 11.1 10^3/uL (1.7-8.2); BASOPHILS % (AUTO) 0.6 % (0-2); HEMATOCRIT 43.2 % (37.9-51.0); HEMOGLOBIN 14.8 g/dL (13.5-17.0); LYMPHOCYTES % (AUTO) 24.2 % (13-45); MEAN CORPUSCULAR HEMOGLOBIN 28.5 pg (27.0-33.4); MEAN CORPUSCULAR HGB CONC 34.2 g/dL (32.0-36.0); MEAN CORPUSCULAR VOLUME 83 fl (80-97); MONOCYTES % (AUTO) 7.1 % (3-13); PLATELET COUNT 277 10^3/uL (150-450); RED BLOOD COUNT 5.18 10^6/uL (4.35-5.55); RED CELL DISTRIBUTION WIDTH 13.5 % (11.5-14.0); SEGMENTED NEUTROPHILS % (AUTO) 68.1 % (42-78); TOTAL CELLS COUNTED % (AUTO) 100 %; WHITE BLOOD COUNT 16.3 10^3/uL (4.0-10.5)
[2020-02-26 05:27] LABS: ALKALINE PHOSPHATASE 71 U/L (38-126); ANION GAP 13 (5-19); ASPARTATE AMINO TRANSFERASE 27 U/L (17-59); BILIRUBIN,TOTAL 0.7 mg/dL (0.2-1.3); BLOOD UREA NITROGEN 13 mg/dL (7-20); CALCIUM 9.9 mg/dL (8.4-10.2); CARBON DIOXIDE 25 mmol/L (22-30); CHLORIDE 100 mmol/L (98-107); GLUCOSE 226 mg/dL (75-110); POTASSIUM 3.7 mmol/L (3.6-5.0); TOTAL PROTEIN 8.1 g/dL (6.3-8.2)
[2020-02-26] MEDS ORDERED: HALOPERIDOL LACTATE INJ 5 MG/1 ML VIAL IV ONE (06:25)
[2020-02-26] MEDS ORDERED: PROCHLORPERAZINE EDISYLATE INJ 10 MG/2 ML VIAL IV ONE (06:25)
--- NOTE | 2020-02-26 06:27 | ER Document Report ---
ED General - General Chief Complaint: Vomiting Stated Complaint: VOMITING,THROAT PAIN,NO SLEEP Time Seen by Provider: 02/26/20 04:37 Primary Care Provider: AINSLEY VIERA PA-C [Primary Care Provider] - Follow up as needed Mode of Arrival: Ambulatory Information source: Patient Notes: 34-year-old black male arrives with chief complaint of diffuse abdominal pain and more than 10 vomitings over the last 12 hours. Patient reports for the last 6 years he has had problem with abdominal pain. He follows a developmental training counselor but often comes to the ER for acute onset of his problem. He has never been diagnosed with gastroparesis. He does smoke marijuana. He has been seen in the ER on multiple occasions for similar symptoms. He was seen 2 days ago here in the ER. TRAVEL OUTSIDE OF THE [place] IN LAST 30 DAYS: No - HPI Onset: Just prior to arrival Onset/Duration: Sudden, Persistent, Worse Quality of pain: Achy Severity: Moderate Pain Level: 2 - Related Data Allergies/Adverse Reactions: No Known Allergies Allergy (Verified 02/26/20 04:33) Home Medications: AMITRIPILINE Past Medical History - General Information source: Patient - Social History Smoking Status: Never Smoker Cigarette use (# per day): No Chew tobacco use (# tins/day): No Smoking Education Provided: No - It and use a smoke marijuana Frequency of alcohol use: None Drug Abuse: Marijuana Lives with: Family - triage Family History: CAD, DM, Hypertension, Malignancy Patient has homicidal ideation: No - Past Medical History Cardiac Medical History: Denies: Hx Coronary Artery Disease, Hx Hypertension Pulmonary Medical History: Denies: Hx Asthma, Hx COPD Neurological Medical History: Denies: Hx Seizures Endocrine Medical History: Reports: Hx Diabetes Mellitus Type 2. Denies: Hx Hyperthyroidism, Hx Hypothyroidism Renal/ Medical History: Denies: Hx Peritoneal Dialysis GI Medical History: Denies: Hx Cirrhosis, Hx Hepatitis Musculoskeletal Medical History: Denies Hx Arthritis, Denies Hx Gout Skin Medical History: Denies Hx Eczema, Denies Hx Psoriasis Psychiatric Medical History: Denies: Hx Depression Infectious Medical History: Denies: Hx Hepatitis Past Surgical History: Reports: Hx Tonsillectomy Review of Systems - Review of Systems Constitutional: See HPI, Recent illness EENT: No symptoms reported Cardiovascular: No symptoms reported Respiratory: No symptoms reported Gastrointestinal: See HPI, Abdominal pain, Nausea, Vomiting Genitourinary: No symptoms reported Male Genitourinary: No symptoms reported Musculoskeletal: No symptoms reported Skin: No symptoms reported Hematologic/Lymphatic: No symptoms reported Neurological/Psychological: No symptoms reported Physical Exam - Vital signs Vitals: Temp Pulse Resp BP Pulse Ox 98.1 F 81 16 150/84 H 96 02/26/20 03:56 02/26/20 03:56 02/26/20 03:56 02/26/20 03:56 02/26/20 03:56 Interpretation: Normal - HEENT Head: Normocephalic, Atraumatic Eyes: Normal Pupils: PERRL Nasal: Normal Mouth/Lips: Normal Mucous membranes: Dry Pharynx: Normal Neck: Normal - Respiratory Respiratory status: No respiratory distress Chest status: Nontender Breath sounds: Normal Chest palpation: Normal - Cardiovascular Rhythm: Regular Heart sounds: Normal auscultation Murmur: No - Abdominal Inspection: Normal Distension: No distension Bowel sounds: Hyperactive Tenderness: Tender - Diffuse abdominal pain without rebound. Bowel sounds are hyperactive Organomegaly: No organomegaly - Rectal Hemorrhoids: Other - deferred - Genitourinary Tenderness: Other - deferred - Back Back: Normal - Extremities General upper extremity: Normal inspection General lower extremity: Normal inspection - Neurological Neuro grossly intact: Yes Cognition: Normal Orientation: AAOx4 Coleman Coma Scale Eye Opening: Spontaneous Coleman Coma Scale Verbal: Oriented Coleman Coma Scale Motor: Obeys Commands Coleman Coma Scale Total: 15 Speech: Normal Motor strength normal: LUE, RUE, LLE, RLE Sensory: Normal - Psychological Associated symptoms: Normal affect - Skin Skin Temperature: Warm Skin Moisture: Dry Course - Vital Signs Vital signs: Temp Pulse Resp BP Pulse Ox 98.1 F 81 16 150/84 H 96 02/26/20 04:33 02/26/20 03:56 02/26/20 03:56 02/26/20 03:56 02/26/20 03:56 - Laboratory Result Diagrams: 02/26/20 04:58 02/26/20 04:58 Laboratory results interpreted by me: 02/26/20 02/26/20 04:58 04:58 WBC 16.3 H Absolute Neuts (auto) 11.1 H Glucose 226 H Critical Care Note - Critical Care Note Total time excluding time spent on procedures (mins): 90 Comments: I advised patient to follow-up with his developmental training counselor or personal doctor and take medicines as directed Discharge - Discharge Clinical Impression: Cyclical vomiting, Gastroparesis Condition: Good Disposition: HOME, SELF-CARE Additional Instructions: Follow-up with personal doctor and with developmental training counselor return to ER as needed take medicines as directed encourage fluids and off work as directed Prescriptions: Misoprostol [Cytotec 0.2 mg Tablet] 200 mcg PO BID #29 tablet Promethazine HCl [Phenergan 25 mg Tablet] 1 tab PO Q6H PRN #15 tablet PRN Reason: Forms: Return to Work Referrals: AINSLEY VIERA PA-C [Primary Care Provider] - Follow up as needed
[2020-02-26] MEDS: NORMAL SALINE 1000 ML 1,000 ML IV PRN ×2 (06:45→09:06)
[2020-02-26] MEDS ORDERED: METOCLOPRAMIDE HCL INJ/PF 10 MG/2 ML SDV IV ONE (07:56)
[2020-02-26 09:42] LABS: APPEARANCE,URINE CLEAR; BILIRUBIN,URINE NEGATIVE (NEGATIVE); COLOR,URINE YELLOW; GLUCOSE, URINE 150 mg/dL (NEGATIVE); KETONES,URINE 80 mg/dL (NEGATIVE); LEUKOCYTE ESTERASE,URINE NEGATIVE (NEGATIVE); NITRITE,URINE NEGATIVE (NEGATIVE); PROTEIN,URINE 30 mg/dL (NEGATIVE); URINE SPECIFIC GRAVITY 1.016; UROBILINOGEN,URINE NEGATIVE mg/dL (<2.0)
[2020-02-26 10:26] VITALS: BP 168/80
--- NOTE | 2020-02-26 10:32 | ER Document Report ---
Doctor's Note Notes: 02/26/20 10:30 Patient with marijuana-induced cyclic vomiting syndrome. Patient has been medicated then received IV fluids. Patient still had some return of vomiting and I wrote reports order for IV Reglan. Patient currently says having dry heaves with no vomiting at this time. Patient is ready for discharge per orders of Dr. mandujano.
== END 2020-02-26 10:38 | disposition home or self-care (01) ==
LOC: ER 03:49
DX: E11.43 Type 2 diabetes mellitus with diabetic autonomic (poly)neuropathy (principal); K31.84 Gastroparesis; R11.15 Cyclical vomiting syndrome unrelated to migraine; F12.188 Cannabis abuse with other cannabis-induced disorder; R10.84 Generalized abdominal pain; Z79.899 Other long term (current) drug therapy
CPT/HCPCS: 99285; 96360; 96361; 36415; 85025; 80053; 81001; J1630; J2765; J0780; J2405; J7030